=== PATIENT | female | born 1930 | race Caucasian/White ===

== ENCOUNTER 2017-10-24 18:39 | Inpatient (IN) | payer MEDICARE, OTHER ==
[~2017-10-24] VITALS: Ht 162.6 cm; Wt 51.9 kg
[2017-10-24 18:40] VITALS: BP 221/102; PULSE 101; RESP 18; TEMP 98; O2SAT 98
--- NOTE | 2017-10-24 18:50 | PD ---
HPI Chief Complaint: close head injury Time Seen by Provider: 18:41 Travel History International Travel<30 days: No Contact w/Intl Traveler<30days: No History of Present Illness HPI This is an 87-year-old female who presents to the emergency department having been found in her driveway prone unresponsive. She had been walking the dog. She thinks she remembers falling and she says the dog pulls her a fair amount. She does report mild head pain on the right side, constant, with no associated numbness or weakness. She denies any other injuries or pain. She denies any chest pain or trouble breathing. FORMERLY [facility] Past Medical History Narrative Medical Unsure of medical history Social History Tobacco Use: No Allergies-Medications (Allergen,Severity, Reaction): Coded Allergies: No Known Allergies (Unverified , 10/24/17) Review of Systems Except as stated in HPI: all other systems reviewed are Neg Physical Exam Narrative GENERAL:Well appearing, no acute distress SKIN: 1 cm stellate laceration on the right forehead. 1 cm skin tear along the base of the ulnar palmar surface of the right hand HEAD: Atraumatic. Normocephalic. EYES: Pupils equal and round. No injection or drainage. ENT: Moist mucous membranes NECK: Trachea midline. Cervical collar in place. CARDIOVASCULAR: Regular rate and rhythm. No murmur appreciated. RESPIRATORY: Clear to auscultation. Breath sounds equal bilaterally. GASTROINTESTINAL: Abdomen soft, non-tender, nondistended. MUSCULOSKELETAL: Full painless range of motion of the hips and knees bilaterally , painless exam of the right hand. NEUROLOGICAL: Awake and alert. No obvious cranial nerve deficits. Moving all extremities. PSYCHIATRIC: Appropriate mood and affect; insight and judgment normal. Data Data Orders Orders Ct Brain W/O Iv Contrast(Rout) (10/24/17 ) Ct Cerv Spine W/O Contrast (10/24/17 ) Complete Blood Count With Diff (10/24/17 18:41) Basic Metabolic Panel (Bmp) (10/24/17 18:41) ^ Insert Iv (10/24/17 18:41) Electrocardiogram (10/24/17 ) MDM Medical Decision Making Medical Screen Exam Complete: Yes Emergency Medical Condition: Yes Differential Diagnosis Subdural hematoma, epidural hematoma, traumatic subarachnoid hemorrhage, cervical spine fracture, concussion, arrhythmia, electrolyte abnormality Narrative Course This is an 87-year-old female who presents to the emergency department having sustained a closed head injury. I suspect it was from a mechanical fall from walking her dog although will check some basic labs and an EKG in the case that this may have been syncope. She is on aspirin. CT of the head and cervical spine will be obtained. Otherwise her physical exam is reassuring. She'll require laceration repair for her forehead. Patient will be signed out to oncoming provider. Courtney Silverman MD Oct 24, 2017 18:49
[2017-10-24 19:12] VITALS: BP 227/112; PULSE 105; RESP 18; O2SAT 98
[2017-10-24] MEDS ORDERED: TETANUS/DIPHTHERIA TOXOID ADULT 0.5 ML VIAL IM ONE (19:15)
--- NOTE | 2017-10-24 19:51 | RADRPT ---
EXAM DATE/TIME: 10/24/2017 18:48 This report includes an Addendum and supersedes previous reports for this exam. [facility] COMPARISON: No previous studies available for comparison. INDICATIONS : Trauma; fall. Laceration to right forehead. RADIATION DOSE: 56.35 CTDIvol (mGy) MEDICAL HISTORY : Non-responsive. SURGICAL HISTORY : Non-responsive. ENCOUNTER: Initial ACUITY: 1 day PAIN SCALE: Non-responsive LOCATION: cranial TECHNIQUE: Multiple contiguous axial images were obtained of the head. Using automated exposure control and adj ustment of the mA and/or kV according to patient size, radiation dose was kept as low as reasonably a chievable to obtain optimal diagnostic quality images. DICOM format image data is available electro nically for review and comparison. FINDINGS: CEREBRUM: There is focal hemorrhage seen in the superior-medial right frontal lobe. This are of hemorrhage elfego ures approximately 1.7 cm. The ventricles are normal for age. No evidence of midline shift, mass les ion, or acute infarction. No extra-axial fluid collections are seen. POSTERIOR FOSSA: The cerebellum and brainstem are intact. The 4th ventricle is midline. The cerebellopontine angle i s unremarkable. EXTRACRANIAL: The visualized portion of the orbits is intact. There is very prominent right frontotemporal scalp sw elling/hemorrhage. SKULL: The calvaria is intact. No evidence of skull fracture. CONCLUSION: 1. Focal hemorrhage in the superior-medial right frontal lobe measuring approximately 1.7 cm without significant underlying mass effect. 2. Prominent soft tissue swelling/hemorrhage in the right lateral frontotemporal scalp. Bo Cardoza MD on October 24, 2017 at 19:46 Board Certified Radiologist. This report was verified electronically. ADDENDUM: A focal 1.7 cm hyperdense mass in the superior-medial right frontal lobe could represent an acute hem orrhage or a pre-existing meningioma. The distinction cannot be made on this noncontrast CT. There ar e small punctate areas of hemorrhage seen in the right frontal lobe inferior to this which raises the possibility this may be an acute hemorrhage. No underlying mass effect is seen at this time. Bo Cardoza MD on October 24, 2017 at 20:59 Board Certified Radiologist. This report was verified electronically.
--- NOTE | 2017-10-24 20:06 | PD ---
Data Data Last Documented VS Vital Signs Date Time Temp Pulse Resp B/P (MAP) Pulse Ox O2 Delivery O2 Flow Rate FiO2 10/24/17 20:50 86 18 197/87 (123) 100 Room Air 10/24/17 18:[address] Brain W/O Iv Contrast(Rout) (10/24/17 ) Ct Cerv Spine W/O Contrast (10/24/17 ) Complete Blood Count With Diff (10/24/17 18:41) Basic Metabolic Panel (Bmp) (10/24/17 18:41) ^ Insert Iv (10/24/17 18:41) Electrocardiogram (10/24/17 ) Tetanus/Diphtheria Tox Adult (Tetanus/Di (10/24/17 19:15) Cefazolin Inj (Ancef Inj) (10/24/17 20:00) Wound Care (10/24/17 19:50) Consult Neurosurgery (10/24/17 ) Platelet Pheresis (10/24/17 20:51) Blood Product Administration .UPON TRANSFUSION (10/24/17 20:51) Sodium Chlor 0.9% 250 Ml Inj (Ns 250 Ml (10/24/17 21:00) Type And Screen (10/24/17 20:51) Urinalysis - C+S If Indicated (10/24/17 20:53) Admit To Inpatient (10/24/17 ) Vital Signs (Adult) TIMOTHY.Q1H (10/24/17 20:53) Elevate Head Of Bed (10/24/17 20:53) Activity Oob With Assistance (10/24/17 20:53) Neuro Checks . ORDERED (10/24/17 20:53) Sodium Chlor 0.9% 1000 Ml Inj (Ns 1000 M (10/24/17 20:53) Sodium Chloride 0.9% Flush (Ns Flush) (10/24/17 21:00) Sodium Chloride 0.9% Flush (Ns Flush) (10/24/17 21:00) Acetaminophen (Tylenol) (10/24/17 21:00) Famotidine (Pepcid) (10/24/17 21:00) Ondansetron Inj (Zofran Inj) (10/24/17 21:00) Albuterol Neb (Albuterol Neb) (10/24/17 21:00) Complete Blood Count With Diff (10/25/17 04:00) Basic Metabolic Panel (Bmp) (10/25/17 04:00) Electrocardiogram (10/24/17 ) Multiple Effect Evaporator Operator / Telemetry TIMOTHY.Q8H (10/24/17 20:53) Scd Bilateral/Knee High TIMOTHY.BID (10/24/17 20:53) Pharmacologic Contraindication (10/24/17 20:53) ^ Initiate Protocol (10/24/17 20:53) Instruction (10/24/17 20:53) [facility] Nursing Information (10/24/17 21:00) Chlorhexidine 2% Cloth (Chlorhexidine 2% (10/25/17 04:00) Chlorhexidine 2% Cloth (Chlorhexidine 2% (10/24/17 21:00) Mrsa Pcr Surveillance (10/24/17 20:53) Docusate Sodium-Senna (Patria-Colace) (10/24/17 21:00) Magnesium Hydroxide Liq (Milk Of Magnesi (10/24/17 21:00) Sennosides (Senokot) (10/24/17 21:00) Bisacodyl Supp (Dulcolax Supp) (10/24/17 21:00) Lactulose Liq (Lactulose Liq) (10/24/17 21:00) Inpatient Certification (10/24/17 ) Admit Order (Ed Use Only) (10/24/17 ) Multiple Effect Evaporator Operator / Telemetry TIMOTHY.Q8H (10/24/17 20:57) Vital Signs (Adult) Q4H (10/24/17 20:57) Diet Npo (10/25/17 Breakfast) Nursing Bedside Swallow Assess .ONCE (10/24/17 20:58) Labs Laboratory Tests Test 10/24/17 19:00 White Blood Count 9.9 TH/MM3 Red Blood Count 4.73 MIL/MM3 Hemoglobin 13.6 GM/DL Hematocrit 41.5 % Mean Corpuscular Volume 87.6 FL Mean Corpuscular Hemoglobin 28.8 PG Mean Corpuscular Hemoglobin Concent 32.8 % Red Cell Distribution Width 14.7 % Platelet Count 273 TH/MM3 Mean Platelet Volume 8.6 FL Neutrophils (%) (Auto) 68.3 % Lymphocytes (%) (Auto) 19.6 % Monocytes (%) (Auto) 9.6 % Eosinophils (%) (Auto) 2.2 % Basophils (%) (Auto) 0.3 % Neutrophils # (Auto) 6.7 TH/MM3 Lymphocytes # (Auto) 1.9 TH/MM3 Monocytes # (Auto) 0.9 TH/MM3 Eosinophils # (Auto) 0.2 TH/MM3 Basophils # (Auto) 0.0 TH/MM3 CBC Comment DIFF FINAL Differential Comment Blood Urea Nitrogen 22 MG/DL Creatinine 0.80 MG/DL Random Glucose 93 MG/DL Calcium Level 9.2 MG/DL Sodium Level 137 MEQ/L Potassium Level 4.3 MEQ/L Chloride Level 107 MEQ/L Carbon Dioxide Level 21.6 MEQ/L Anion Gap 8 MEQ/L Estimat Glomerular Filtration Rate 68 ML/MIN MDM Medical Record Reviewed: Yes Supervised Visit with HUNTER: No Narrative Course Please refer to the outgoing provider note. The patient has an injured parenchymal hemorrhage in the medial aspect of the superior portion of the right frontal lobe. The area of hemorrhage is 2 cm in maximum diameter. The patient takes aspirin. Last [address] 10/24/17 0000 Signed Impressions: Service Date/Time: Tuesday, October 24, 2017 18:48 - CONCLUSION: 1. Focal hemorrhage in the superior-medial right frontal lobe measuring approximately 1.7 cm without significant underlying mass effect. 2. Prominent soft tissue swelling/hemorrhage in the right lateral frontotemporal scalp. Bo Cardoza MD d/w Dr Singer of neurosurgery at 845pm pt to go to [facility] she has no focal CN deficit gcs is 15 R forehead laceration repaired by me at bedside with good hemostatic control d/w Dr Olsen for CC service Procedures Procedure Narrative LACERATION LOCATION: Right forehead LENGTH: 2 cm NUMBER OF STITCHES/LAURA: 4 REPAIR: The area of the laceration was prepped with Betadine and sterilely draped. The laceration was infiltrated with lidocaine with epinephrine. The wound was copiously irrigated and explored without evidence of foreign body, tendon injury or neurovascular injury. The wound was closed using 5-0 Ethilon and 4-0 Ethilon. This was a single layer repair. A sterile dressing was applied. The patient was advised to keep the dressing clean and dry. Patient tolerated the procedure well. Figure of 8 sutures were required to obtain hemostatic control. Diagnosis Primary Impression: Fall Qualified Codes: W19.XXXA - Unspecified fall, initial encounter Additional Impressions: ICH (intracerebral hemorrhage) Qualified Codes: S06.341A - Traumatic hemorrhage of right cerebrum with loss of consciousness of 30 minutes or less, initial encounter Syncope and collapse Laceration of scalp Qualified Codes: S01.01XA - Laceration without foreign body of scalp, initial encounter Admitting Information Admitting Physician Requests: Admit Scripts Unable to Obtain Active Prescriptions or Reported Meds Marcellus Tran MD Oct 24, 2017 20:06
[2017-10-24 20:12] LABS: AUTOMATED NEUTROPHIL # 6.7 TH/MM3 (1.8-7.7); BASOPHIL % 0.3 % (0.0-2.0); EOSINOPHIL # 0.2 TH/MM3 (0-0.4); EOSINOPHIL % 2.2 % (0.0-4.0); HEMATOCRIT 41.5 % (35.0-46.0); HEMO FLAGS DIFF FINAL; LYMPH % 19.6 % (9.0-44.0); LYMPHOCYTE # 1.9 TH/MM3 (1.0-4.8); MEAN CELL VOLUME 87.6 FL (80.0-100.0); MEAN CORPUSCULAR HEMOGLOBIN 28.8 PG (27.0-34.0); MEAN CORPUSCULAR HGB CONC 32.8 % (32.0-36.0); MONO % 9.6 % (0.0-8.0); NEUT % 68.3 % (16.0-70.0); PLATELET COUNT 273 TH/MM3 (150-450); RED BLOOD COUNT 4.73 MIL/MM3 (4.00-5.30); RED CELL DISTRIBUTION WIDTH 14.7 % (11.6-17.2); WHITE BLOOD COUNT 9.9 TH/MM3 (4.0-11.0)
[2017-10-24 20:32] LABS: BICARBONATE 21.6 MEQ/L (21.0-32.0); POTASSIUM 4.3 MEQ/L (3.5-5.1)
[2017-10-24 20:50] VITALS: BP 197/87; PULSE 86; RESP 18; O2SAT 100
[2017-10-24] MEDS ORDERED: MISCELLANEOUS NURSING INFORMATION XX SCH (21:00)
[2017-10-24] MEDS: FAMOTIDINE 20 MG TAB PO SCH (21:00)
[2017-10-24] MEDS ORDERED: SENNOSIDES 8.6 MG TAB PO PRN (21:00)
[2017-10-24] MEDS ORDERED: MAGNESIUM HYDROXIDE SUSP 30 ML CUP PO PRN (21:00)
[2017-10-24] MEDS ORDERED: ACETAMINOPHEN 325 MG TAB PO PRN (21:00)
[2017-10-24] MEDS ORDERED: LACTULOSE SYRUP 20 GM/30 ML CUP PO PRN (21:00)
[2017-10-24] MEDS ORDERED: SODIUM CHLORIDE 0.9% FLUSH 10 ML FLUSH IV FLUSH PRN (21:00)
[2017-10-24] MEDS ORDERED: BISACODYL 10 MG SUPP RECTAL PRN (21:00)
[2017-10-24] MEDS ORDERED: ONDANSETRON HCL 4 MG/2 ML VIAL IV PUSH PRN (21:00)
[2017-10-24] MEDS ORDERED: SODIUM CHLOR 0.9% 250 ML INJ 250 ML IV ONE (21:00)
[2017-10-24] MEDS: SODIUM CHLORIDE 0.9% FLUSH 10 ML FLUSH IV FLUSH SCH (21:00)
[2017-10-24] MEDS ORDERED: CHLORHEXIDINE GLUCONATE 2 % 1 PACK (2 CLOTHS) TOP PRN (21:00)
[2017-10-24] MEDS ORDERED: RESP: ALBUTEROL 2.5 MG/3 ML NEB (PRN) INH (21:00)
[2017-10-24] MEDS: DOCUSATE SODIUM 50 MG/SENNA 8.6 MG TAB PO SCH (21:00)
--- NOTE | 2017-10-24 21:13 | HHI.HP ---
HPI Service Critical Care Medicine Primary Care Physician Unknown Admission Diagnosis Fall; Syncope; ICH; Forehead Laceration Diagnosis: (1) Forehead laceration Diagnosis: Secondary (2) Fall (3) HTN (hypertension) Diagnosis: Secondary (4) Abrasion hand Diagnosis: Secondary (5) Concussion Diagnosis: Principal (6) Frontal lobe contusion Diagnosis: Principal Travel History International Travel<30 Days: No Contact w/Intl Traveler <30 Da: No Traveled to Known Affected Are: No History of Present Illness Patient is alert and able to provide history regarding her fall. She is not able to relate any information about her home medications or past medical history aside from her prior surgeries. 87-year-old female who was brought to [facility] emergency department after a fall with loss of consciousness. She states that she recalls walking her dog and that the dog pulled on the leash and caused her to fall. She states this is happened one time before about a year ago. She had loss of consciousness. No reported seizure activity. There is a laceration on her right forehead which has been repaired in the ED. CT brain demonstrates R frontal lobe hemorrhage. Neurosurgery has been consulted and Dr. Singer suspects underlying meningioma. She currently denies headache, nausea, neck pain, paresthesias. She is bothered by the cervical collar in place. She denies chest pain, shortness of breath, palpitations. She was hypertensive on arrival with blood pressure 227/112. She has not received any antihypertensives. Blood pressure is now 180/81. She states she does not have a history of hypertension but she is on several medications and doesn't know their names or what they're for. She states she takes a baby ASA but denies anticoagulants. Past Family Social History Allergies: Coded Allergies: No Known Allergies (Unverified , 10/24/17) Past Medical History Patient states that she has no past medical problems but also states that she is on multiple medications and she is not certain what they're for. She states she has been pulled down by her dog before and fell resulting in an ED visit to [facility]. She had a laceration that was repaired but states "I didn't have a concussion". Past Surgical History Left knee arthroplasty 7 years ago Right knee arthroplasty in May 2017 Reported Medications Patient states she takes multiple medications but does not know their names. Her family states he will they will bring in her medication list in the morning Takes aspirin 81 mg by mouth daily Family History Mother had a prior history of coronary artery disease and 5 vessel CABG. She at age 94 Father at age 45 of myocardial infarction Social History Lifetime nonsmoker Denies alcohol or illicit drug use She is a retired middle school and highway worker and lives at home with her and her clayton viera. Physical Exam Vital Signs Vital Signs Date Time Temp Pulse Resp B/P (MAP) Pulse Ox O2 Delivery O2 Flow Rate FiO2 10/24/17 20:50 86 18 197/87 (123) 100 Room Air 10/24/17 19:12 105 18 227/112 (150) 98 Room Air 10/24/17 18:45 101 18 100 Room Air 10/24/17 18:40 98.0 101 18 221/102 (141) 98 Physical Exam GENERAL: Pleasant, smiling, interactive elderly female who is laying in ED stretcher. SKIN: Warm and dry. HEAD: There is a curvilinear laceration overlying right forehead with sutures intact. There is an underlying forehead hematoma. EYES: Pupils equal and round, 2mm and reactive. No scleral icterus. + subconjunctival hemorrhage of lateral bulbar conjunctiva of right eye ENT: No nasal bleeding or discharge. Mucous membranes pink and moist. NECK: Cervical collar in place. No midline tenderness/stepoffs or deformities. CARDIOVASCULAR: Regular rate and rhythm, sinus on monitor. No murmurs rubs or gallops. RESPIRATORY: No accessory muscle use. Clear to auscultation. Breath sounds equal bilaterally. On RA. GASTROINTESTINAL: Abdomen soft, non-tender, nondistended. Bowel sounds present. MUSCULOSKELETAL: Extremities without clubbing, cyanosis, or edema. There is an deep abrasion overlying distal 5th metacarpal R hand. There is no other bony tenderness. She has some limitation of flexion of 4th and 5th fingers on her right hand which she states has been chronic since an injury about 1 year ago. NEUROLOGICAL: Awake and alert. Oriented to hospital, month. Answered year correctly after taking a long time to answer. No obvious cranial nerve deficits. Normal tongue protrusion. Normal speech. No pronator drift. Strength is normal and symmetrical throughout. Sensation is intact. No response to Babinski Laboratory Laboratory Tests Test 10/24/17 19:00 White Blood Count 9.9 Red Blood Count 4.73 Hemoglobin 13.6 Hematocrit 41.5 Mean Corpuscular Volume 87.6 Mean Corpuscular Hemoglobin 28.8 Mean Corpuscular Hemoglobin Concent 32.8 Red Cell Distribution Width 14.7 Platelet Count 273 Mean Platelet Volume 8.6 Neutrophils (%) (Auto) 68.3 Lymphocytes (%) (Auto) 19.6 Monocytes (%) (Auto) 9.6 Eosinophils (%) (Auto) 2.2 Basophils (%) (Auto) 0.3 Neutrophils # (Auto) 6.7 Lymphocytes # (Auto) 1.9 Monocytes # (Auto) 0.9 Eosinophils # (Auto) 0.2 Basophils # (Auto) 0.0 CBC Comment DIFF FINAL Differential Comment Blood Urea Nitrogen 22 Creatinine 0.80 Random Glucose 93 Calcium Level 9.2 Sodium Level 137 Potassium Level 4.3 Chloride Level 107 Carbon Dioxide Level 21.6 Anion Gap 8 Estimat Glomerular Filtration Rate 68 Result Diagram: 10/24/17189910/24/171899 Caprini VTE Risk Assessment Caprini Risk Assessment Model Point Value = 1 Point Value = 2 Point Value = 3 Point Value = 5 Age 41-60 Minor surgery BMI > 25 kg/m2 Swollen legs Varicose veins or History of unexplained or recurrent spontaneous Oral contraceptives or hormone replacement Sepsis (< 1 month) Serious lung disease, including pneumonia (< 1 month) Abnormal pulmonary function Acute myocardial infarction Congestive heart failure (< 1 month) History of inflammatory bowel disease Medical patient at bed rest Age 61-74 Arthroscopic surgery Major open surgery (> 45 min) Laparoscopic surgery (> 45 min) Malignancy Confined to bed (> 72 hours) Immobilizing plaster cast Central venous access Age >= 75 History of VTE Family history of VTE Factor V Leiden Prothrombin [id number] Lupus anticoagulant Anticardiolipin antibodies Elevated serum homocysteine Heparin-induced thrombocytopenia Other congenital or acquired thrombophilia Stroke (< 1 month) Elective arthroplasty Hip, pelvis, or leg fracture Acute spinal cord injury (< 1 month) Prophylaxis Regimen Total Risk Factor Score Risk Level Prophylaxis Regimen 0-1 Low Early ambulation 2 Moderate Order ONE of the following: *Sequential Compression Device (SCD) *Heparin 5000 units SQ BID 3-4 Higher Order ONE of the following medications: *Heparin 5000 units SQ TID *Enoxaparin/Lovenox 40 mg SQ daily (WT < 150 kg, CrCl > 30 mL/min) *Enoxaparin/Lovenox 30 mg SQ daily (WT < 150 kg, CrCl > 10-29 mL/min) *Enoxaparin/Lovenox 30 mg SQ BID (WT < 150 kg, CrCl > 30 mL/min) AND/OR *Sequential Compression Device (SCD) 5 or more Highest Order ONE of the following medications: *Heparin 5000 units SQ TID (Preferred with Epidurals) *Enoxaparin/Lovenox 40 mg SQ daily (WT < 150 kg, CrCl > 30 mL/min) *Enoxaparin/Lovenox 30 mg SQ daily (WT < 150 kg, CrCl > 10-29 mL/min) *Enoxaparin/Lovenox 30 mg SQ BID (WT < 150 kg, CrCl > 30 mL/min) AND *Sequential Compression Device (SCD) Assessment and Plan Problem List: (1) Fall ICD Code: W19.XXXA - Unspecified fall, initial encounter Status: Acute (2) Forehead laceration ICD Code: S01.81XA - Laceration without foreign body of other part of head, initial encounter Status: Acute (3) Concussion ICD Code: S06.0X9A - Concussion with loss of consciousness of unspecified duration, initial encounter Status: Acute (4) Abrasion hand ICD Code: S60.519A - Abrasion of unspecified hand, initial encounter Status: Acute (5) HTN (hypertension) ICD Code: I10 - Essential (primary) hypertension Status: Acute Assessment and Plan NEURO: Fall with Loss of consciousness Concussion R frontal hemorrhagic contusion ?meningioma. Forehead laceration Status post suture repair in the emergency department 10/24. Remove sutures in 3-5 days Admitted to [facility] for neuro checks Follow up CT brain in a.m. per neurosurgery recommendations. Obtain MRI to evaluate for meningioma per neurosurgery recommendations. Neurosurgery following, Dr. Singer. Blood pressure management as per below Follow-up coags CT Cspine - degenerative changes, no fracture. D/c cervical collar. Discussed with NSG. RESP: On room air. CV: Hypertension Labetalol/hydralazine as needed for systolic blood pressure greater than 160. Patient denies prior history of hypertension however he wasn't clear whether medical history so will need to review medications when lists arives in the morning. If she is not on home antihypertensive medication she may need to initiate something. GI: Bedside swallow eval. Heart healthy diet FEN/RENAL: Voiding. Monitor intake and output. Monitor electrolytes and replace as indicated per ICU electrolyte replacement protocol. 0.9 NaCl at 50 mL per hour overnight ID: UA negative for evidence of infection. Monitor for signs and symptoms of infection. HEME: No acute hematologic issues. She has been on aspirin. She denied being on anticoagulants. She can't remember her medications. We'll check coags. Hold on platelet transfusion per discussion with Dr. Singer ENDO: Euglycemic MSK: Abrasion right hand, distal aspect 5th metacarpal F/u xray hand. PROPH: Famotidine 20 g by mouth twice a day for stress ulcer prophylaxis. SCDs for DVT prophylaxis ACCESS: Peripheral IV providing adequate access at this time CODE STATUS discussed and patient states she desires to be full code. Her was at bedside during conversation. Level 3 H and P Problem Qualifiers (1) Forehead laceration: Qualified Codes: S01.81XA - Laceration without foreign body of other part of head, initial encounter (2) Fall: Qualified Codes: W19.XXXA - Unspecified fall, initial encounter (3) Concussion: (4) Frontal lobe contusion: Qualified Codes: S06.311A - Contusion and laceration of right cerebrum with loss of consciousness of 30 minutes or less, initial encounter Sarah Olsen MD Oct 24, 2017 21:13
--- NOTE | 2017-10-24 21:46 | HHI.NSPN ---
History Chief Complaint: Fall Interval History 87y/o female patient was walking her dog and fell with LOC. Brought to [facility] ER. Ct of brain performed which was abnormal. Neurosurgery consult placed. patient reports doing well at present System Review Comments Denies any problems except arthritis Exam Results Vital Signs Date Time Temp Pulse Resp B/P (MAP) Pulse Ox O2 Delivery O2 Flow Rate FiO2 10/24/17 20:50 86 18 197/87 (123) 100 Room Air 10/24/17 18:40 98.0 Intake and Output 10/24/17 10/24/17 10/25/17 08:00 16:00 00:00 Intake Total 100 ml Balance 100 ml Physical Examination Multiple abrasions about the face and scalp hematoma over right frontal area with small laceration Alert and awake Fluent speech Oriented x2 Confused about year CN II-XII intact Motor 5/5 Sensory intact to touch DTRs UEs1+ KJ 1+ AJ Tr Lab, Micro, Other Results CT of brain shows evidence of small bleeding in right frontal lobe. Possible small meningioma present CT of Cspine deg changes Medical Decision Making Impression and Plan Imp: Small SAH frontal lobe Possible meningioma P: Admit for observation Repeat CT in am Total Minutes: 30 Mata Singer MD Oct 24, 2017 21:46
--- NOTE | 2017-10-24 22:03 | RADRPT ---
EXAM DATE/TIME: 10/24/2017 18:51 [facility] COMPARISON: No previous studies available for comparison. INDICATIONS : Trauma; fall. RADIATION DOSE: 33.42 CTDIvol (mGy) MEDICAL HISTORY : Non-responsive. SURGICAL HISTORY : Non-responsive. ENCOUNTER: Initial ACUITY: 1 day PAIN SCALE: Non-responsive LOCATION: Neck TECHNIQUE: Volumetric scanning of the cervical spine was performed. Multiplanar reconstructions in the sagittal, coronal and oblique axial planes were performed. Using automated exposure control and adjustment o f the mA and/or kV according to patient size, radiation dose was kept as low as reasonably achievable to obtain optimal diagnostic quality images. DICOM format image data is available electronically f or review and comparison. FINDINGS: VERTEBRAE: Normal vertebral body height. ALIGNMENT: There is mild anterior subluxation of C4 on C5 and C7 on T1 likely secondary to facet hypertrophy. C2-C3: Disc space is intact. There is no spinal stenosis. Neural foraminal is normal. There is prominent f acet hypertrophy seen on the left side. C3-C4: The disc space is intact. There is no spinal stenosis. Neural foraminal is normal. There is very pr ominent right facet hypertrophy. C4-C5: Again noted is some mild anterior subluxation of C4 on C5. A significant impression on the thecal sa c is not seen. The neural foraminal are normal. There is prominent facet hypertrophy being worse on the left. C5-C6: Disc space is narrowed. A significant impression on the thecal sac is not seen. There is mild facet and uncovertebral hypertrophy. The neural foraminal appear normal. C6-C7: Disc space is narrowed. A significant impression on the thecal sac is not seen. There is mild facet and uncovertebral hypertrophy. The neural foraminal are grossly patent. C7-T1: There is minimal anterior subluxation of C7 on T1. This is likely secondary to facet hypertrophy. S ignificant stenosis is not seen. The neural foraminal are normal. CONCLUSION: 1. No acute bony abnormality is seen. 2. Chronic degenerative change as described above. Bo Cardoza MD on October 24, 2017 at 19:50 Board Certified Radiologist. This report was verified electronically.
[2017-10-24] MEDS: LABETALOL HCL 100 MG/20 ML VIAL IV PUSH PRN ×2 (22:08→22:36)
[2017-10-24] MEDS: SODIUM CHLOR 0.9% 1000 ML INJ 1,000 ML IV SCH (22:09)
[2017-10-24 22:17] VITALS: BP 140/65; PULSE 71; RESP 18; TEMP 98.1; O2SAT 96
[2017-10-24 22:30] VITALS: BP 180/81; PULSE 74; RESP 15; TEMP 98.3; O2SAT 99
[2017-10-24 22:39] LABS: BLOOD, URINE TRACE (NEG); GLUCOSE,URINE NEG (NEG); KETONE, URINE 10 mg/dL (NEG); MUCUS URINE FEW /lpf (OCC); NITRITE,URINE NEG (NEG); SQUAMOUS EPITHELIAL CELL URINE 1 /hpf (0-5); URINE COLOR LIGHT-YELLOW (YELLW/STRAW)
[2017-10-24 22:42] LABS: COMMENT (UR) CULT NOT INDICATED; CULTURE IF INDICATED CULT NOT INDICATED
[2017-10-24 23:00] VITALS: BP 156/92; PULSE 74; RESP 18; TEMP 97.9; O2SAT 98
[2017-10-25] VITALS (12 sets, daily range): BP systolic 115–160; BP diastolic 52–87; PULSE 79–109; RESP 18–26; TEMP 97.9–99.5; O2SAT 96–99
[2017-10-25] MEDS ORDERED: hydrALAZINE HCL 20 MG/ML VIAL IV PUSH PRN (00:30)
[2017-10-25 00:44] LABS: APTT (PATIENT) 25.5 SEC (24.3-30.1); PROTHROMBIN TIME - PATIENT 10.4 SEC (9.8-11.6)
[2017-10-25] MEDS: CHLORHEXIDINE GLUCONATE 2 % 1 PACK (2 CLOTHS) TOP SCH ×2 (04:00→22:28)
[2017-10-25 05:30] LABS: AUTOMATED NEUTROPHIL # 8.6 TH/MM3 (1.8-7.7); BASOPHIL % 0.4 % (0.0-2.0); EOSINOPHIL % 0.3 % (0.0-4.0); HEMATOCRIT 34.4 % (35.0-46.0); HEMO FLAGS DIFF FINAL; LYMPH % 9.4 % (9.0-44.0); MEAN CELL VOLUME 85.8 FL (80.0-100.0); MEAN CORPUSCULAR HGB CONC 33.8 % (32.0-36.0); MONO % 9.8 % (0.0-8.0); NEUT % 80.1 % (16.0-70.0); PLATELET COUNT 164 TH/MM3 (150-450); RED BLOOD COUNT 4.01 MIL/MM3 (4.00-5.30); RED CELL DISTRIBUTION WIDTH 14.2 % (11.6-17.2); WHITE BLOOD COUNT 10.8 TH/MM3 (4.0-11.0)
--- NOTE | 2017-10-25 05:39 | MB ---
cc: REGGIE HENSLEY DATE OF CONSULTATION 10/24/2017 CHIEF COMPLAINT Fall. HISTORY This is an 87-year-old female patient who was walking her dog when she apparently sustained a fall with loss of consciousness. She was brought to [facility] where she underwent evaluation with CT scan which was abnormal and neurosurgery consult was placed. Presently the patient has no significant complaints. She denies any type of injuries about her body. PAST MEDICAL HISTORY The patient is unsure of her medical history. ALLERGIES She has no apparent allergies. MEDICATIONS Not familiar to her, although she does say that she takes aspirin. REVIEW OF SYSTEMS Unremarkable. She denies any other system problems. PHYSICAL EXAMINATION GENERAL: A well-developed female in mild distress. HEENT: She has multiple ecchymosis about the face and a small laceration of the scalp and the right frontal area with an area of hematoma. The rest of the HEENT is unremarkable. NECK: She is in a cervical collar. CHEST: Symmetric. LUNGS: Clear. ABDOMEN: Soft, nontender. EXTREMITIES: Clear. NEUROLOGIC: She is alert and awake. She follows commands well. She is oriented x 2. She is confused as to the year. Her speech is fluent. Cranial nerves II through XII are intact. Motor exam is 5+/5. Sensory exam is intact to touch. Deep tendon reflex are 1+ in the upper extremities, 1+ at the knee jerks and trace at the ankle jerks. IMAGING STUDIES Review of a CT scan of the brain showed what appears to be a small amount of bleeding in the right frontal area in the subarachnoid space. There is also a questionable lesion which may be compatible with a small meningioma, although not entirely clear. CT of the cervical spine shows degenerative changes. OVERALL IMPRESSION A small traumatic subarachnoid hemorrhage with a questionable small meningioma. PLAN 1. Admit the patient for observation. 2. Repeat CT in the morning. 3. Place her in the Intensive Care Unit. MD JOVI Flores/CADEN /9:47 PM /5:25 AM [facility] CENTERConnie
[2017-10-25 05:49] LABS: BICARBONATE 19.6 MEQ/L (21.0-32.0); POTASSIUM 4.3 MEQ/L (3.5-5.1)
--- NOTE | 2017-10-25 07:04 | RADRPT ---
EXAM DATE/TIME: 10/25/2017 06:33 [facility] COMPARISON: CT BRAIN W/O CONTRAST, October 24, 2017, 18:48. INDICATIONS : Follow up hemorrhage. RADIATION DOSE: 37.75 CTDIvol (mGy) MEDICAL HISTORY : Non-responsive. SURGICAL HISTORY : Non-responsive. ENCOUNTER: Subsequent ACUITY: 1 day PAIN SCALE: Non-responsive LOCATION: cranial TECHNIQUE: Multiple contiguous axial images were obtained of the head. Using automated exposure control and adj ustment of the mA and/or kV according to patient size, radiation dose was kept as low as reasonably a chievable to obtain optimal diagnostic quality images. DICOM format image data is available electro nically for review and comparison. FINDINGS: CEREBRUM: There are new areas of parenchymal hemorrhage seen in the left temporal lobe measuring up to 1.1 cm. There is some surrounding low density in this region. There also appears to be minimal left subdural hemorrhage over the left temporal lobe measuring 2 mm in thickness. There also appears to be increase d density at the left tentorium likely related to a tentorial subdural hemorrhage. There is subdural hemorrhage seen along the posterior left side of the falx. Again noted is the increased density seen over the anterior right frontal lobe likely reflecting hemorrhage. The ventricles are normal for age. No evidence of midline shift or acute infarction. POSTERIOR FOSSA: The cerebellum and brainstem are intact. The 4th ventricle is midline. The cerebellopontine angle i s unremarkable. EXTRACRANIAL: The visualized portion of the orbits is intact. There is right frontotemporal scalp swelling. SKULL: The calvaria is intact. No evidence of skull fracture. CONCLUSION: 1. Persistent focal area of increased density at the anterior right frontal lobe which may represent an area of hemorrhage or possible pre-existing meningioma of the right anterior frontal lobe. 2. New small areas of parenchymal hemorrhage with surrounding edema at the left temporal lobe. 3. Minimal left temporal subdural hemorrhage area there also appears to be subdural hemorrhage at the posterior left side of falx and at the left tentorium. This information was relayed to Graciela, the patient's nurse by telephone. Bo Cardoza MD on October 25, 2017 at 6:51 Board Certified Radiologist. This report was verified electronically.
--- NOTE | 2017-10-25 07:52 | RADRPT ---
EXAM DATE/TIME: 10/25/2017 07:21 [facility] COMPARISON: No previous studies available for comparison. INDICATIONS : Right hand laceration. Patient was dragged down by her dog. MEDICAL HISTORY : None. SURGICAL HISTORY : None. ENCOUNTER: Initial ACUITY: 2 days PAIN SCORE: 2/10 LOCATION: Right hand. FINDINGS: 3 views of the right hand show ost arthritic changes involving the DIP joints of the third through fi fth fingers. Some erosions are noted. Bone mineralization is reduced throughout. No fracture or dislo cation. No radiopaque foreign body. Soft tissues are unremarkable. CONCLUSION: Erosive osteoarthritic changes. No acute abnormality. Prasad Poon Jr., MD on October 25, 2017 at 7:38 Board Certified Radiologist. This report was verified electronically.
[2017-10-25] MEDS: DOCUSATE SODIUM 50 MG/SENNA 8.6 MG TAB PO SCH ×2 (09:00→19:47)
--- NOTE | 2017-10-25 10:14 | HHI.NSPN ---
(Kendall Maldonado) History Chief Complaint: None (Kendall Maldonado) Interval History 10/24: This is an 87-year-old female patient who was walking her dog when she apparently sustained a fall with loss of consciousness. She was brought to [facility] where she underwent evaluation with CT scan which was abnormal and neurosurgery consult was placed. Presently the patient has no significant complaints. She denies any type of injuries about her body. 10/25: The patient is awake and alert when seen this morning and she had no complaints. Nursing reports that she has been up to the bathroom to void and her gait was steady. She is to go for an MRI brain today to evaluate for a possible meningioma per CT. (Kendall Maldonado) System Review Comments The ROS is negative. (Kendall Maldonado) Exam Results 10/23/17 10/23/17 10/24/17 10/24/17 10/25/17 10/25/17 06:00 18:00 06:00 18:00 06:00 18:00 Intake Total 100 ml 0 ml Output Total 350 ml Balance 100 ml -350 ml Intake Oral 0 ml IV Total 100 ml Output Urine Total 350 ml Emesis 0 ml # Bowel Movements 1 Vital Signs Date Time Temp Pulse Resp B/P (MAP) Pulse Ox O2 Delivery O2 Flow Rate FiO2 10/25/17 06:00 90 20 142/65 (90) 98 10/25/17 06:00 90 10/25/17 05:00 109 10/25/17 05:00 109 20 160/69 (99) 96 10/25/17 04:00 88 10/25/17 04:00 99.5 88 20 129/58 (81) 97 10/25/17 03:00 Room Air 10/25/17 02:00 81 10/25/17 00:00 81 10/25/17 00:00 97.9 81 18 115/87 (96) 97 10/24/17 23:00 74 10/24/17 23:00 97.9 74 18 156/92 (113) 98 10/24/17 22:35 10/24/17 22:30 74 10/24/17 22:30 98.3 74 15 180/81 (114) 99 10/24/17 22:17 98.1 71 18 140/65 (90) 96 Room Air 10/24/17 20:50 86 18 197/87 (123) 100 Room Air 10/24/17 19:12 105 18 227/112 (150) 98 Room Air 10/24/17 18:45 101 18 100 Room Air 10/24/17 18:40 98.0 101 18 221/102 (141) 98 (Kendall Maldonado) Physical Examination GENERAL: Awake & alert, readily interacts, affect normal, no apparent distress. HEENT: Normocephalic, abrasion to right forehead/frontal scalp. PERRLA 3 mm brisk, EOMI. No otorrhea or rhinorrhea. MMM & pink, tongue midline to protrusion. MUSCULOSKELETAL: BOLIVAR w/o difficulty, ecchymosis to BUE, right proximal forearm TTP, no evident deformity or clubbing. NEUROLOGICAL: AAOx3. Speech clear & appropriate. Follows commands w/o difficulty. CN VIII deficit ([place]) o/w CN II-XII appear grossly intact. Sensation intact to light touch to all extremities. Motor strength 5/5 to all major flexion & extension muscle groups. (Kendall Maldonado) Lab, Micro, Other Results This practitioner independently reviewed the CT brain images completed this morning and compared with those from . The right frontal lesion appears slightly improved but there are new left temporoparietal parenchymal haemorrhages. Recent Impressions Head CT 10/25/17 0900 Signed Impressions: Service Date/Time: Wednesday, October 25, 2017 06:33 - CONCLUSION: 1. Persistent focal area of increased density at the anterior right frontal lobe which may represent an area of hemorrhage or possible pre-existing meningioma of the right anterior frontal lobe. 2. New small areas of parenchymal hemorrhage with surrounding edema at the left temporal lobe. 3. Minimal left temporal subdural hemorrhage area there also appears to be subdural hemorrhage at the posterior left side of falx and at the left tentorium. This information was relayed to Graciela, the patient's nurse by telephone. Bo Cardoza MD Hand X-Ray 10/25/17 0000 Signed Impressions: Service Date/Time: Wednesday, October 25, 2017 07:21 - CONCLUSION: Erosive osteoarthritic changes. No acute abnormality. Prasad Poon Jr., MD Head CT 10/24/17 0000 Signed Impressions: Service Date/Time: Tuesday, October 24, 2017 18:48 - CONCLUSION: 1. Focal hemorrhage in the superior-medial right frontal lobe measuring approximately 1.7 cm without significant underlying mass effect. 2. Prominent soft tissue swelling/hemorrhage in the right lateral frontotemporal scalp. Bo Cardoza MD ADDENDUM: A focal 1.7 cm hyperdense mass in the superior-medial right frontal lobe could represent an acute hemorrhage or a pre-existing meningioma. The distinction cannot be made on this noncontrast CT. There are small punctate areas of hemorrhage seen in the right frontal lobe inferior to this which raises the possibility this may be an acute hemorrhage. No underlying mass effect is seen at this time. Bo Cardoza MD Cervical Spine CT 10/24/17 0000 Signed Impressions: Service Date/Time: Tuesday, October 24, 2017 18:51 - CONCLUSION: 1. No acute bony abnormality is seen. 2. Chronic degenerative change as described above. Bo Cardoza MD Laboratory Tests Test 10/24/17 19:00 10/24/17 21:41 10/24/17 22:30 10/25/17 00:25 White Blood Count 9.9 TH/MM3 Red Blood Count 4.73 MIL/MM3 Hemoglobin 13.6 GM/DL Hematocrit 41.5 % Mean Corpuscular Volume 87.6 FL Mean Corpuscular Hemoglobin 28.8 PG Mean Corpuscular Hemoglobin Concent 32.8 % Red Cell Distribution Width 14.7 % Platelet Count 273 TH/MM3 Mean Platelet Volume 8.6 FL Neutrophils (%) (Auto) 68.3 % Lymphocytes (%) (Auto) 19.6 % Monocytes (%) (Auto) 9.6 % Eosinophils (%) (Auto) 2.2 % Basophils (%) (Auto) 0.3 % Neutrophils # (Auto) 6.7 TH/MM3 Lymphocytes # (Auto) 1.9 TH/MM3 Monocytes # (Auto) 0.9 TH/MM3 Eosinophils # (Auto) 0.2 TH/MM3 Basophils # (Auto) 0.0 TH/MM3 CBC Comment DIFF FINAL Differential Comment Blood Urea Nitrogen 22 MG/DL Creatinine 0.80 MG/DL Random Glucose 93 MG/DL Calcium Level 9.2 MG/DL Sodium Level 137 MEQ/L Potassium Level 4.3 MEQ/L Chloride Level 107 MEQ/L Carbon Dioxide Level 21.6 MEQ/L Anion Gap 8 MEQ/L Estimat Glomerular Filtration Rate 68 ML/MIN Urine Color LIGHT-YELLOW Urine Turbidity CLEAR Urine pH 5.0 Urine Specific Maurice 1.012 Urine Protein TRACE mg/dL Urine Glucose (UA) NEG mg/dL Urine Ketones 10 mg/dL Urine Occult Blood TRACE Urine Nitrite NEG Urine Bilirubin NEG Urine Urobilinogen LESS THAN 2.0 MG/DL Urine Leukocyte Esterase TRACE Urine RBC 4 /hpf Urine WBC 4 /hpf Urine Squamous Epithelial Cells 1 /hpf Urine Mucus FEW /lpf Microscopic Urinalysis Comment CULT NOT INDICATED Nasal Screen MRSA (PCR) MRSA NOT DETECTED Prothrombin Time 10.4 SEC Prothromb Time International Ratio 1.0 RATIO Activated Partial Thromboplast Time 25.5 SEC Test 10/25/17 04:50 White Blood Count 10.8 TH/MM3 Red Blood Count 4.01 MIL/MM3 Hemoglobin 11.6 GM/DL Hematocrit 34.4 % Mean Corpuscular Volume 85.8 FL Mean Corpuscular Hemoglobin 29.0 PG Mean Corpuscular Hemoglobin Concent 33.8 % Red Cell Distribution Width 14.2 % Platelet Count 164 TH/MM3 Mean Platelet Volume 8.8 FL Neutrophils (%) (Auto) 80.1 % Lymphocytes (%) (Auto) 9.4 % Monocytes (%) (Auto) 9.8 % Eosinophils (%) (Auto) 0.3 % Basophils (%) (Auto) 0.4 % Neutrophils # (Auto) 8.6 TH/MM3 Lymphocytes # (Auto) 1.0 TH/MM3 Monocytes # (Auto) 1.1 TH/MM3 Eosinophils # (Auto) 0.0 TH/MM3 Basophils # (Auto) 0.0 TH/MM3 CBC Comment DIFF FINAL Differential Comment Hematology Comments Blood Urea Nitrogen 18 MG/DL Creatinine 0.62 MG/DL Random Glucose 98 MG/DL Calcium Level 8.4 MG/DL Sodium Level 139 MEQ/L Potassium Level 4.3 MEQ/L Chloride Level 110 MEQ/L Carbon Dioxide Level 19.6 MEQ/L Anion Gap 9 MEQ/L Estimat Glomerular Filtration Rate 91 ML/MIN (Kendall Maldonado) Medical Decision Making Impression and Plan Impression: 1.) Small traumatic subarachnoid hemorrhage with a questionable small meningioma. The patient is doing well this morning and is neurologically intact and appears at baseline. CT brain demonstrates persistent anterior right frontal lobe haemorrhage with new areas of left temporal lobe parenchymal haemorrhage, minimal left temporal SDH as well as a left side falx & tentorium SDH. Plan: Primary management per Carpet Installer/Hospitalist. Neuro checks. Stat CT for any decline in neuro status. MRI brain w/o & w/contrast to evaluate for meningioma. Clear liquids and advance as tolerated. Mechanical DVT prophylaxis. Hold pharmacologic DVT prophylaxis. Recommend that the patient remain in [facility] at least another 24 hrs due to new areas of haemorrahge. (Kendall Maldonado) Total Minutes: 30 (Kendall Maldonado) Attending Statement The exam, history, and the medical decision-making described in the above note were completed with the assistance of the mid-level provider. I reviewed and agree with the findings presented. I attest that I had a [id number] encounter with the patient on the same day, and personally performed and documented my assessment and findings in the medical record. On my examination of the patient this evening, she is noted to have mild right palpebral ecchymosis. Awake and alert Oriented X 3 Speech is clear Conversant and appropriate Follow simple commands well Answers questions appropriately Reasonable judgment and insight Recent and remote memory are intact No evidence of anxiety or depression Pupils are equal and reactive to accommodation. Extra-ocular movements, visual alexander to confrontation, facial sensorimotor, tongue, palate, sternocleidomastoid testing, hearing to finger rub testing, and bilateral shoulder shrug are all intact. Sensation is intact to light touch in all extremities Strength normal major flexion and extension groups all extremities Clayton's absent bilaterally No ankle clonus Plantar responses absent bilateral Fine motor movements intact upper extremities Imaging studies: 10/25/17 CT scan of the head reveals stable focal left temporal cortical and subcortical contusion without significant mass effect. 10/25/17 MRI brain reveals the left primarily temporal contusion with very slight surrounding enhancement. Findings were discussed with the patient. She is stable for transfer to regular floor. A follow-up MRI will be obtained an approximate 6 weeks due to the slight enhancement noted. (Angel Hernández MD) Kendall Maldonado Oct 25, 2017 10:13 Angel Hernández MD Oct 25, 2017 20:17
[2017-10-25] MEDS: SODIUM CHLORIDE 0.9% FLUSH 10 ML FLUSH IV FLUSH SCH ×2 (11:07→21:00)
[2017-10-25] MEDS: FAMOTIDINE 20 MG TAB PO SCH ×2 (11:26→22:27)
[2017-10-25] MEDS: LABETALOL HCL 100 MG/20 ML VIAL IV PUSH PRN (11:26)
[2017-10-25] MEDS ORDERED: GADODIAMIDE PF 287 MG/ML 5 ML VIAL (for RAD MRI) IV PUSH ONE (14:40)
--- NOTE | 2017-10-25 14:44 | RADRPT ---
EXAM DATE/TIME: 10/25/2017 13:58 [facility] COMPARISON: CT BRAIN W/O CONTRAST, October 25, 2017, 6:33. INDICATIONS : Trauma. Brain bleed. CONTRAST: 11 cc Omniscan (gadodiamide) IV MEDICAL HISTORY : None. SURGICAL HISTORY : Total knee replacement, right. Total knee replacement, left. ENCOUNTER: Initial ACUITY: 2 day PAIN SCORE: 3/10 LOCATION: head TECHNIQUE: Multiplanar, multisequence MRI of the brain was performed both prior to and following the administrat ion of paramagnetic contrast. FINDINGS: There is small hemorrhage in the left temporoparietal region with a small amount of extra-axial fluid present. this has minimal localized mass effect. Ventricular size is appropriate. Scattered white matter changes are seen in the periventricular white matter. Following administration of contrast there is some subtle enhancement in the left temporal regio n associated with the hemorrhage. This does not look like an AVM. This could be subtle venous angio ma. Posterior fossa is unremarkable. Orbits and paranasal sinuses CONCLUSION: Small parenchymal hemorrhage left parietal-occipital region probably bland hemorrhage . Subtle enhancement with contrast should be followed with MRI in 6 weeks to ensure this is evolving as gland hemorrhage should.. Juan Castillo MD FACR on October 25, 2017 at 14:38 Board Certified Radiologist. This report was verified electronically.
[2017-10-25] MEDS: SODIUM CHLOR 0.9% 1000 ML INJ 1,000 ML IV SCH (14:55)
--- NOTE | 2017-10-25 16:27 | HHI.CCPN ---
Subjective Remarks/Hospital Course Patient is alert and able to provide history regarding her fall. She is not able to relate any information about her home medications or past medical history aside from her prior surgeries. 87-year-old female who was brought to [facility] emergency department after a fall with loss of consciousness. She states that she recalls walking her dog and that the dog pulled on the leash and caused her to fall. She states this is happened one time before about a year ago. She had loss of consciousness. No reported seizure activity. There is a laceration on her right forehead which has been repaired in the ED. CT brain demonstrates R frontal lobe hemorrhage. Neurosurgery has been consulted and Dr. Singer suspects underlying meningioma. She currently denies headache, nausea, neck pain, paresthesias. She is bothered by the cervical collar in place. She denies chest pain, shortness of breath, palpitations. She was hypertensive on arrival with blood pressure 227/ 112. She has not received any antihypertensives. Blood pressure is now 180/ 81. She states she does not have a history of hypertension but she is on several medications and doesn't know their names or what they're for. She states she takes a baby ASA but denies anticoagulants. 10/25: Patient is alert awake now focal deficits. MRI today shows small hemorrhage in the left temporoparietal region with a small amount of extra- axial fluid present, has minimal localized mass effect. Following administration of contrast there is some subtle enhancement in the left temporal region associated with the hemorrhage. This does not look like an AVM , but could be subtle venous angioma. No meningioma on MRI. F/u MRI in 6 weeks recommended Objective Vital Signs Date Time Temp Pulse Resp B/P (MAP) Pulse Ox O2 Delivery O2 Flow Rate FiO2 10/25/17 12:00 98.0 79 22 118/57 (77) 96 10/25/17 07:00 Room Air Intake and Output 10/25/17 10/25/17 10/26/17 08:00 16:00 00:00 Intake Total 0 ml 381 ml Output Total 350 ml 625 ml Balance -350 ml -244 ml Result Diagram: 10/25/17 0450 10/25/17 0450 Objective Remarks GENERAL: Pleasant, smiling, interactive elderly female who is lying in bed. SKIN: Warm and dry. HEAD: There is a curvilinear laceration overlying right forehead with sutures intact. There is an underlying forehead hematoma. EYES: Pupils equal and round, 2mm and reactive. No scleral icterus. + subconjunctival hemorrhage conjunctiva of right eye ENT: No nasal bleeding or discharge. Mucous membranes pink and moist. NECK: No midline tenderness CARDIOVASCULAR: Regular rate and rhythm, sinus on monitor. No murmurs rubs or gallops. RESPIRATORY: No accessory muscle use. Clear to auscultation. GASTROINTESTINAL: Abdomen soft, non-tender, nondistended. Bowel sounds present. MUSCULOSKELETAL: Extremities without clubbing, cyanosis, or edema. There is an deep abrasion overlying distal 5th metacarpal R hand. NEUROLOGICAL: Awake and alert. Oriented to hospital, month, year. No obvious cranial nerve deficits. Normal speech. No pronator drift. Strength is normal and symmetrical throughout. Sensation is intact. A/P Problem List: (1) Fall ICD Code: W19.XXXA - Unspecified fall, initial encounter Status: Acute (2) Forehead laceration ICD Code: S01.81XA - Laceration without foreign body of other part of head, initial encounter Status: Acute (3) Concussion ICD Code: S06.0X9A - Concussion with loss of consciousness of unspecified duration, initial encounter Status: Acute (4) Abrasion hand ICD Code: S60.519A - Abrasion of unspecified hand, initial encounter Status: Acute (5) HTN (hypertension) ICD Code: I10 - Essential (primary) hypertension Status: Acute Assessment and Plan NEURO: Fall with Loss of consciousness Concussion R frontal hemorrhagic contusion ?meningioma. Forehead laceration Status post suture repair in the emergency department 10/24. Remove sutures in 3-[address] brain in a.m. per neurosurgery recommendations. MRI today shows small hemorrhage in the left temporoparietal region with a small amount of extra-axial fluid present, has minimal localized mass effect. Following administration of contrast there is subtle enhancement in the left temporal region associated with the hemorrhage. This does not look like an AVM , but could be subtle venous angioma. MRI rpt in 6 weeks Neurosurgery following, Dr. Singer. Now Dr. Hernández Blood pressure management as per below Follow-up coags CT C spine - degenerative changes, no fracture. RESP: On room air. CV: Hypertension Labetalol/hydralazine as needed for systolic blood pressure greater than 160. Patient denies prior history of hypertension however he wasn't clear whether medical history so will need to review medications when lists arrives in the morning. Normotensive now. GI: Bedside swallow eval. Heart healthy diet FEN/RENAL: Voiding. Monitor intake and output. Monitor electrolytes and replace as indicated per ICU electrolyte replacement protocol. 0.9 NaCl at 50 mL per hour overnight-DC today ID: UA negative for evidence of infection. Monitor for signs and symptoms of infection. HEME: No acute hematologic issues. She has been on aspirin. She denied being on anticoagulants. She can't remember her medications. We'll check coags. ENDO: Euglycemic MSK: Abrasion right hand, distal aspect 5th metacarpal F/u xray hand- no fracture PROPH: Famotidine 20 g by mouth twice a day for stress ulcer prophylaxis. SCDs for DVT prophylaxis ACCESS: Peripheral IV providing adequate access at this time CODE STATUS discussed and patient states she desires to be full code. Her was at bedside during conversation. Level 2 Transfer to Med surg/transfer to floor. Hospitalist to assume care in am Problem Qualifiers (1) Fall: Qualified Codes: W19.XXXA - Unspecified fall, initial encounter (2) Forehead laceration: Qualified Codes: S01.81XA - Laceration without foreign body of other part of head, initial encounter (3) Concussion: Glendy Soriano MD Oct 25, 2017 16:27
--- NOTE | 2017-10-25 17:05 | EKG ---
Date Performed: 10/24/2017 Time Performed: 18:49:36 PTAGE: 87 years EKG: SINUS TACHYCARDIA MODERATE ST DEPRESSION Since previous tracing, no significant change note d ABNORMAL ECG PREVIOUS TRACING : 05/19/2000 08.29 DOCTOR: Thad Priest Interpretating Date/Time 10/25/2017 17:03:19
[2017-10-26] VITALS (7 sets, daily range): BP systolic 98–180; BP diastolic 47–80; PULSE 76–93; RESP 18–19; TEMP 97.3–98.6; O2SAT 97–98
[2017-10-26] MEDS ORDERED: hydrALAZINE HCL 50 MG TAB PO ONE (06:30)
[2017-10-26] MEDS: SODIUM CHLORIDE 0.9% FLUSH 10 ML FLUSH IV FLUSH SCH ×2 (09:00→20:23)
[2017-10-26] MEDS: DOCUSATE SODIUM 50 MG/SENNA 8.6 MG TAB PO SCH ×2 (10:20→20:22)
[2017-10-26] MEDS: FAMOTIDINE 20 MG TAB PO SCH ×2 (10:20→20:22)
[2017-10-26] MEDS: ENALAPRIL MALEATE 2.5 MG TAB PO SCH (10:20)
[2017-10-26] MEDS ORDERED: cloNIDine HCL 0.1 MG TAB PO PRN (12:30)
[2017-10-26] MEDS: traMADol HCL 50 MG TAB PO PRN ×2 (13:02→20:22)
[2017-10-26] MEDS ORDERED: ESTR0.5T PO (14:46)
[2017-10-26] MEDS ORDERED: diclofenac PO (14:46)
[2017-10-26] MEDS ORDERED: ASPI1TAB93 (14:46)
[2017-10-26] MEDS ORDERED: DOXY1CAP74 PO (14:46)
[2017-10-26] MEDS ORDERED: LUTE20CA PO (14:46)
[2017-10-26] MEDS ORDERED: CITA20TA4 PO (14:46)
[2017-10-26] MEDS ORDERED: MONT10TA2 (14:46)
--- NOTE | 2017-10-26 16:09 | HHI.NSPN ---
(Kendall Maldonado) History Chief Complaint: Improving headache and nausea. (Kendall Maldonado) Interval History 10/24: This is an 87-year-old female patient who was walking her dog when she apparently sustained a fall with loss of consciousness. She was brought to [facility] where she underwent evaluation with CT scan which was abnormal and neurosurgery consult was placed. Presently the patient has no significant complaints. She denies any type of injuries about her body. 10/25: The patient is awake and alert when seen this morning and she had no complaints. Nursing reports that she has been up to the bathroom to void and her gait was steady. She is to go for an MRI brain today to evaluate for a possible meningioma per CT. 10/26: When seen this afternoon the patient is in a stretcher getting ready to go down for rib x-rays. She stated that this morning she had a headache, dizziness and nausea. When they got her back to bed it took two people to help her. The headache and dizziness are better and the nausea has resolved. She says she is having pain up under her right breast and it was felt she may have a rib fracture. She also stated that Physical Therapy thought she would be able to go home with Home Health for further therapy. (Kendall Maldonado) System Review Comments GASTROINTESTINAL: Nausea this morning. NEUROLOGICAL: Headache and dizziness from this morning that is improving. (Kendall Maldonado) Exam Results 10/24/17 10/24/17 10/25/17 10/25/17 10/26/17 10/26/17 06:00 18:00 06:00 18:00 06:00 18:00 Intake Total 100 ml 1440 ml Output Total 1200 ml Balance 100 ml 240 ml Intake Oral 360 ml IV Total 100 ml 1080 ml Output Urine Total 1200 ml Emesis 0 ml # Voids 5 2 # Bowel Movements 3 Vital Signs Date Time Temp Pulse Resp B/P (MAP) Pulse Ox O2 Delivery O2 Flow Rate FiO2 10/26/17 12:00 98.1 93 18 180/77 (111) 98 10/26/17 09:42 97 Room Air 10/26/17 08:00 97.8 92 19 138/80 (99) 97 10/26/17 05:27 98.1 77 19 163/69 (100) 97 10/25/17 22:30 97 Room Air 10/25/17 20:00 98.8 89 26 158/70 (99) 97 10/25/17 19:00 98 Room Air 10/25/17 16:00 98.4 81 24 132/62 (85) 97 10/25/17 16:00 92 10/25/17 14:00 86 10/25/17 12:00 98.0 79 22 118/57 (77) 96 10/25/17 10:00 97 10/25/17 08:00 98.3 90 19 119/52 (74) 99 10/25/17 08:00 83 10/25/17 07:00 99 Room Air 10/25/17 07:00 83 10/25/17 06:00 90 20 142/65 (90) 98 10/25/17 06:00 90 10/25/17 05:00 109 10/25/17 05:00 109 20 160/69 (99) 96 10/25/17 04:00 88 10/25/17 04:00 99.5 88 20 129/58 (81) 97 10/25/17 03:00 Room Air 10/25/17 02:00 81 10/25/17 00:00 81 10/25/17 00:00 97.9 81 18 115/87 (96) 97 10/24/17 23:00 74 10/24/17 23:00 97.9 74 18 156/92 (113) 98 10/24/17 22:35 10/24/17 22:30 74 10/24/17 22:30 98.3 74 15 180/81 (114) 99 10/24/17 22:17 98.1 71 18 140/65 (90) 96 Room Air 10/24/17 20:50 86 18 197/87 (123) 100 Room Air 10/24/17 19:12 105 18 227/112 (150) 98 Room Air 10/24/17 18:45 101 18 100 Room Air 10/24/17 18:40 98.0 101 18 221/102 (141) 98 (Kendall Maldonado) Physical Examination GENERAL: Awake & alert, readily interacts, affect normal, no apparent distress. HEENT: Normocephalic, abrasion to right forehead/frontal scalp. PERRLA 3 mm brisk, EOMI, right periorbital ecchymosis. MMM & pink, tongue midline to protrusion. MUSCULOSKELETAL: BOLIVAR w/o difficulty, ecchymosis to BUE, right distal shoulder TTP, no evident deformity or clubbing. NEUROLOGICAL: AAOx3 except for year. Speech clear & appropriate. Follows commands w/o difficulty. CN VIII deficit ([place]) o/w CN II-XII appear grossly intact. Sensation intact to light touch to all extremities. Motor strength 5/5 to all major flexion & extension muscle groups. (Kendall Maldonado) Lab, Micro, Other Results Recent Impressions Head CT 10/25/17 0900 Signed Impressions: Service Date/Time: Wednesday, October 25, 2017 06:33 - CONCLUSION: 1. Persistent focal area of increased density at the anterior right frontal lobe which may represent an area of hemorrhage or possible pre-existing meningioma of the right anterior frontal lobe. 2. New small areas of parenchymal hemorrhage with surrounding edema at the left temporal lobe. 3. Minimal left temporal subdural hemorrhage area there also appears to be subdural hemorrhage at the posterior left side of falx and at the left tentorium. This information was relayed to Graciela, the patient's nurse by telephone. Bo Cardoza MD Hand X-Ray 10/25/17 0000 Signed Impressions: Service Date/Time: Wednesday, October 25, 2017 07:21 - CONCLUSION: Erosive osteoarthritic changes. No acute abnormality. Prasad Poon Jr., MD Brain MRI 10/25/17 0000 Signed Impressions: Service Date/Time: Wednesday, October 25, 2017 13:58 - CONCLUSION: Small parenchymal hemorrhage left parietal-occipital region probably bland hemorrhage. Subtle enhancement with contrast should be followed with MRI in 6 weeks to ensure this is evolving as gland hemorrhage should.. Juan Castillo MD FACR Head CT 10/24/17 0000 Signed Impressions: Service Date/Time: Tuesday, October 24, 2017 18:48 - CONCLUSION: 1. Focal hemorrhage in the superior-medial right frontal lobe measuring approximately 1.7 cm without significant underlying mass effect. 2. Prominent soft tissue swelling/hemorrhage in the right lateral frontotemporal scalp. Bo Cardoza MD ADDENDUM: A focal 1.7 cm hyperdense mass in the superior-medial right frontal lobe could represent an acute hemorrhage or a pre-existing meningioma. The distinction cannot be made on this noncontrast CT. There are small punctate areas of hemorrhage seen in the right frontal lobe inferior to this which raises the possibility this may be an acute hemorrhage. No underlying mass effect is seen at this time. Bo Cardoza MD Cervical Spine CT 10/24/17 0000 Signed Impressions: Service Date/Time: Tuesday, October 24, 2017 18:51 - CONCLUSION: 1. No acute bony abnormality is seen. 2. Chronic degenerative change as described above. Bo Cardoza MD Laboratory Tests Test 10/24/17 19:00 10/24/17 21:41 10/24/17 22:30 10/25/17 00:25 White Blood Count 9.9 TH/MM3 Red Blood Count 4.73 MIL/MM3 Hemoglobin 13.6 GM/DL Hematocrit 41.5 % Mean Corpuscular Volume 87.6 FL Mean Corpuscular Hemoglobin 28.8 PG Mean Corpuscular Hemoglobin Concent 32.8 % Red Cell Distribution Width 14.7 % Platelet Count 273 TH/MM3 Mean Platelet Volume 8.6 FL Neutrophils (%) (Auto) 68.3 % Lymphocytes (%) (Auto) 19.6 % Monocytes (%) (Auto) 9.6 % Eosinophils (%) (Auto) 2.2 % Basophils (%) (Auto) 0.3 % Neutrophils # (Auto) 6.7 TH/MM3 Lymphocytes # (Auto) 1.9 TH/MM3 Monocytes # (Auto) 0.9 TH/MM3 Eosinophils # (Auto) 0.2 TH/MM3 Basophils # (Auto) 0.0 TH/MM3 CBC Comment DIFF FINAL Differential Comment Blood Urea Nitrogen 22 MG/DL Creatinine 0.80 MG/DL Random Glucose 93 MG/DL Calcium Level 9.2 MG/DL Sodium Level 137 MEQ/L Potassium Level 4.3 MEQ/L Chloride Level 107 MEQ/L Carbon Dioxide Level 21.6 MEQ/L Anion Gap 8 MEQ/L Estimat Glomerular Filtration Rate 68 ML/MIN Urine Color LIGHT-YELLOW Urine Turbidity CLEAR Urine pH 5.0 Urine Specific [place] 1.012 Urine Protein TRACE mg/dL Urine Glucose (UA) NEG mg/dL Urine Ketones 10 mg/dL Urine Occult Blood TRACE Urine Nitrite NEG Urine Bilirubin NEG Urine Urobilinogen LESS THAN 2.0 MG/DL Urine Leukocyte Esterase TRACE Urine RBC 4 /hpf Urine WBC 4 /hpf Urine Squamous Epithelial Cells 1 /hpf Urine Mucus FEW /lpf Microscopic Urinalysis Comment CULT NOT INDICATED Nasal Screen MRSA (PCR) MRSA NOT DETECTED Prothrombin Time 10.4 SEC Prothromb Time International Ratio 1.0 RATIO Activated Partial Thromboplast Time 25.5 SEC Test 10/25/17 04:50 White Blood Count 10.8 TH/MM3 Red Blood Count 4.01 MIL/MM3 Hemoglobin 11.6 GM/DL Hematocrit 34.4 % Mean Corpuscular Volume 85.8 FL Mean Corpuscular Hemoglobin 29.0 PG Mean Corpuscular Hemoglobin Concent 33.8 % Red Cell Distribution Width 14.2 % Platelet Count 164 TH/MM3 Mean Platelet Volume 8.8 FL Neutrophils (%) (Auto) 80.1 % Lymphocytes (%) (Auto) 9.4 % Monocytes (%) (Auto) 9.8 % Eosinophils (%) (Auto) 0.3 % Basophils (%) (Auto) 0.4 % Neutrophils # (Auto) 8.6 TH/MM3 Lymphocytes # (Auto) 1.0 TH/MM3 Monocytes # (Auto) 1.1 TH/MM3 Eosinophils # (Auto) 0.0 TH/MM3 Basophils # (Auto) 0.0 TH/MM3 CBC Comment DIFF FINAL Differential Comment Hematology Comments Blood Urea Nitrogen 18 MG/DL Creatinine 0.62 MG/DL Random Glucose 98 MG/DL Calcium Level 8.4 MG/DL Sodium Level 139 MEQ/L Potassium Level 4.3 MEQ/L Chloride Level 110 MEQ/L Carbon Dioxide Level 19.6 MEQ/L Anion Gap 9 MEQ/L Estimat Glomerular Filtration Rate 91 ML/MIN (Kendall Maldonado) Medical Decision Making Impression and Plan Impression: 1.) Small traumatic subarachnoid hemorrhage with a questionable small meningioma. The patient continues to do well and is neurologically intact. CT brain demonstrates persistent anterior right frontal lobe haemorrhage with new areas of left temporal lobe parenchymal haemorrhage, minimal left temporal SDH as well as a left side falx & tentorium SDH. MRI brain demonstrates small left parietoccipital parenchymal haemorrhage. Plan: Primary management per Learning Disabled Teacher/Hospitalist. Neuro checks. Stat CT for any decline in neuro status. MRI brain w/o & w/contrast to evaluate for meningioma. Clear liquids and advance as tolerated. Mechanical DVT prophylaxis. Hold pharmacologic DVT prophylaxis. Recommend that the patient remain in ISC at least another 24 hrs due to new areas of haemorrahge. (Kendall Maldonado) Total Minutes: 30 (Kendall Maldonado) Attending Statement The exam, history, and the medical decision-making described in the above note were completed with the assistance of the mid-level provider. I reviewed and agree with the findings presented. I attest that I had a [id number] encounter with the patient on the same day, and personally performed and documented my assessment and findings in the medical record. On my examination of 10/26/2017 in the evening the patient is resting quietly. She arouses easily to voice. Her speech is a little hesitant but clear. She denies headache or nausea. Extraocular movements intact Facial motor symmetric Extremity sensory to light touch and motor function intact Vital signs stable Stable mild traumatic brain injury, mild areas of contusion and subarachnoid hemorrhage without significant mass effect. Slight area of enhancement on MRI. Doubtful underlying neoplasm but plan follow -up MRI brain with and without contrast as an outpatient in approximately 6 weeks. She is otherwise stable for discharge from neurosurgical standpoint. (Angel Hernández MD) Kendall Maldonado Oct 26, 2017 16:09 Angel Hernández MD Oct 27, 2017 00:13
--- NOTE | 2017-10-26 16:31 | RADRPT ---
EXAM DATE/TIME: 10/26/2017 16:16 [facility] COMPARISON: No previous studies available for comparison. INDICATIONS : Right upper rib pain post fall. MEDICAL HISTORY : None. SURGICAL HISTORY : Total knee replacement, right. Total knee replacement, left. ENCOUNTER: Initial ACUITY: 2 days PAIN SCORE: 7/10 LOCATION: Right ribs. FINDINGS: Multiple views of the right ribs were performed. There is no evidence of displaced fracture. No nelson tructive lesions or areas of periosteal thickening are seen. Expiratory view of the chest is negativ e for pneumothorax. The mediastinal structures are midline. CONCLUSION: Unremarkable examination of the right ribs and chest. Brady Delacruz MD on October 26, 2017 at 16:29 Board Certified Radiologist. This report was verified electronically.
--- NOTE | 2017-10-26 19:16 | HHI.PR ---
Subjective Remarks Pt says she is feeling generally weak after the fall followed by 4 days NPO. She is requesting food. She also says she is in pain, particularly on the right anterior ribs. She has many friends and family members at bedside. Objective Vital Signs Date Time Temp Pulse Resp B/P (MAP) Pulse Ox O2 Delivery O2 Flow Rate FiO2 10/26/17 16:00 97.3 80 18 98/47 (64) 98 10/26/17 12:00 98.1 93 18 180/77 (111) 98 10/26/17 09:42 97 Room Air 10/26/17 08:00 97.8 92 19 138/80 (99) 97 10/26/17 05:27 98.1 77 19 163/69 (100) 97 10/25/17 22:30 97 Room Air 10/25/17 20:00 98.8 89 26 158/70 (99) 97 I/O 10/25/17 10/25/17 10/25/17 10/26/17 10/26/17 10/26/17 07:00 15:00 23:00 07:00 15:00 23:00 Intake Total 0 ml 381 ml 1059 ml 480 ml Output Total 350 ml 625 ml 225 ml Balance -350 ml -244 ml 834 ml 480 ml Intake Oral 0 ml 360 ml 480 ml IV Total 21 ml 1059 ml Output Urine Total 350 ml 625 ml 225 ml Emesis 0 ml # Voids 3 2 2 2 # Bowel Movements 1 1 1 1 Result Diagram: 10/25/17 0450 10/25/17 0450 Imaging Last Impressions Ribs X-Ray 10/26/17 0000 Signed Impressions: Service Date/Time: Thursday, October 26, 2017 16:16 - CONCLUSION: Unremarkable examination of the right ribs and chest. Brady Delacruz MD Head CT 10/25/17 0900 Signed Impressions: Service Date/Time: Wednesday, October 25, 2017 06:33 - CONCLUSION: 1. Persistent focal area of increased density at the anterior right frontal lobe which may represent an area of hemorrhage or possible pre-existing meningioma of the right anterior frontal lobe. 2. New small areas of parenchymal hemorrhage with surrounding edema at the left temporal lobe. 3. Minimal left temporal subdural hemorrhage area there also appears to be subdural hemorrhage at the posterior left side of falx and at the left tentorium. This information was relayed to Graciela, the patient's nurse by telephone. Bo Cardoza MD Hand X-Ray 10/25/17 0000 Signed Impressions: Service Date/Time: Wednesday, October 25, 2017 07:21 - CONCLUSION: Erosive osteoarthritic changes. No acute abnormality. Prasad Poon Jr., MD Brain MRI 10/25/17 0000 Signed Impressions: Service Date/Time: Wednesday, October 25, 2017 13:58 - CONCLUSION: Small parenchymal hemorrhage left parietal-occipital region probably bland hemorrhage. Subtle enhancement with contrast should be followed with MRI in 6 weeks to ensure this is evolving as gland hemorrhage should.. Juan Castillo MD FACR Cervical Spine CT 10/24/17 0000 Signed Impressions: Service Date/Time: Tuesday, October 24, 2017 18:51 - CONCLUSION: 1. No acute bony abnormality is seen. 2. Chronic degenerative change as described above. Bo Cardoza MD Objective Remarks GENERAL: Well-nourished, well-developed patient. SKIN: Warm and dry, bandage on right forehead and right lateral hand. EYES: No scleral icterus. No injection or drainage. NECK: Supple, trachea midline. No JVD or lymphadenopathy. CARDIOVASCULAR: Regular rate and rhythm without murmurs, gallops, or rubs. RESPIRATORY: Breath sounds equal bilaterally. No accessory muscle use. GASTROINTESTINAL: Abdomen soft, non-tender, nondistended. MUSCULOSKELETAL: Tenderness to palpation over right 4th rib area, mid nipple line BACK: Nontender without obvious deformity. No CVA tenderness. EXTREMITIES: no edema Assessment and Plan Problem List: (1) ICH (intracerebral hemorrhage) ICD Codes: I61.9 - Nontraumatic intracerebral hemorrhage, unspecified Status: Acute (2) Syncope and collapse ICD Codes: R55 - Syncope and collapse Status: Acute (3) Laceration of scalp ICD Codes: S01.01XA - Laceration without foreign body of scalp, initial encounter Status: Acute Assessment and Plan Intracerebral hemorrhage due to syncope with fall - Left parietotemporal hematoma on MRI, no evidence of stroke - Radiology recommends repeat MRI in 6 weeks to rule out venous angioma - Neurosurgery following - Thus far no events on telemery to account for the episode of syncope Laceration of forehead - repaired in the ER - dressing changes Rib Pain - Rib x-ray shows no fractures DVT Prophylaxis - SCD hose due to presence of ICH Problem Qualifiers (1) ICH (intracerebral hemorrhage): Qualified Codes: S06.341A - Traumatic hemorrhage of right cerebrum with loss of consciousness of 30 minutes or less, initial encounter (2) Laceration of scalp: Qualified Codes: S01.01XA - Laceration without foreign body of scalp, initial encounter Emiliano Kaufman MD Oct 26, 2017 19:16
[2017-10-26] MEDS ORDERED: MONTELUKAST SODIUM 10 MG TAB PO SCH (21:00)
[2017-10-27] VITALS: BP 105/52; PULSE 79; RESP 18; TEMP 98.5; O2SAT 96
[2017-10-27] MEDS: CHLORHEXIDINE GLUCONATE 2 % 1 PACK (2 CLOTHS) TOP SCH (01:36)
[2017-10-27 04:00] VITALS: BP 112/51; PULSE 75; RESP 18; TEMP 98.2; O2SAT 95
[2017-10-27 07:37] VITALS: BP 117/54; PULSE 78; RESP 18; TEMP 98.9; O2SAT 97
[2017-10-27] MEDS: FAMOTIDINE 20 MG TAB PO SCH (08:44)
[2017-10-27] MEDS: DOCUSATE SODIUM 50 MG/SENNA 8.6 MG TAB PO SCH (08:44)
[2017-10-27] MEDS: SODIUM CHLORIDE 0.9% FLUSH 10 ML FLUSH IV FLUSH SCH (08:44)
[2017-10-27] MEDS: ENALAPRIL MALEATE 2.5 MG TAB PO SCH (08:44)
[2017-10-27] MEDS ORDERED: CITALOPRAM HYDROBROMIDE 20 MG TAB PO SCH (09:00)
--- NOTE | 2017-10-27 10:21 | HHI.FF ---
Face to Face Verification Diagnosis: (1) Laceration of scalp (2) Fall (3) ICH (intracerebral hemorrhage) Physical Therapy Order: Evaluate and Treat Home Health Nursing Order: Nursing assessment with vital signs I have seen patient Lucille Ashley on 10/27/17. My clinical findings support the need for the requested home health care services because: Limited ability to care for self I certify that my clinical findings support that this patient is homebound because: Unsafe to leave home unassisted Finn Isaacs MD Oct 27, 2017 10:21
--- NOTE | 2017-10-27 10:28 | HHI.PR ---
Subjective Remarks She says she is feeling well. Denies any chest pain or shortness of breath. Denies any nausea or vomiting. Feels like going home. Says that she was walking the dog and that the dog pulled her down. She promises not to walk the dog anymore. Objective Vital Signs Date Time Temp Pulse Resp B/P (MAP) Pulse Ox O2 Delivery O2 Flow Rate FiO2 10/27/17 07:37 98.9 78 18 117/54 (75) 97 10/27/17 04:00 98.2 75 18 112/51 (71) 95 10/27/17 00:00 98.5 79 18 105/52 (69) 96 10/26/17 23:51 97 Room Air 10/26/17 23:49 87 10/26/17 20:24 76 10/26/17 20:20 98.6 82 19 111/54 (73) 97 10/26/17 16:00 97.3 80 18 98/47 (64) 98 10/26/17 12:00 98.1 93 18 180/77 (111) 98 I/O 10/26/17 10/26/17 10/26/17 10/27/17 10/27/17 10/27/17 07:00 15:00 23:00 07:00 15:00 23:00 Intake Total 480 ml Balance 480 ml Intake Oral 480 ml # Voids 2 3 # Bowel Movements 2 Result Diagram: 10/25/17 0450 10/25/17 0450 Imaging Last Impressions Ribs X-Ray 10/26/17 0000 Signed Impressions: Service Date/Time: Thursday, October 26, 2017 16:16 - CONCLUSION: Unremarkable examination of the right ribs and chest. Brady Delacruz MD Head CT 10/25/17 0900 Signed Impressions: Service Date/Time: Wednesday, October 25, 2017 06:33 - CONCLUSION: 1. Persistent focal area of increased density at the anterior right frontal lobe which may represent an area of hemorrhage or possible pre-existing meningioma of the right anterior frontal lobe. 2. New small areas of parenchymal hemorrhage with surrounding edema at the left temporal lobe. 3. Minimal left temporal subdural hemorrhage area there also appears to be subdural hemorrhage at the posterior left side of falx and at the left tentorium. This information was relayed to Graciela, the patient's nurse by telephone. Bo Cardoza MD Hand X-Ray 10/25/17 0000 Signed Impressions: Service Date/Time: Wednesday, October 25, 2017 07:21 - CONCLUSION: Erosive osteoarthritic changes. No acute abnormality. Prasad Poon Jr., MD Brain MRI 10/25/17 0000 Signed Impressions: Service Date/Time: Wednesday, October 25, 2017 13:58 - CONCLUSION: Small parenchymal hemorrhage left parietal-occipital region probably bland hemorrhage. Subtle enhancement with contrast should be followed with MRI in 6 weeks to ensure this is evolving as gland hemorrhage should.. Juan Castillo MD FACR Cervical Spine CT 10/24/17 0000 Signed Impressions: Service Date/Time: Tuesday, October 24, 2017 18:51 - CONCLUSION: 1. No acute bony abnormality is seen. 2. Chronic degenerative change as described above. Bo Cardoza MD Objective Remarks GENERAL: Patient sitting up in chair. Appears comfortable. SKIN: Warm and dry. HEAD: Normocephalic. Right forehead laceration CDI EYES: No scleral icterus. No injection or drainage. NECK: Supple, trachea midline. No JVD. CARDIOVASCULAR: Regular rate and rhythm without murmurs, gallops, or rubs. RESPIRATORY: Breath sounds equal bilaterally. No accessory muscle use. GASTROINTESTINAL: Abdomen soft, non-tender, nondistended. MUSCULOSKELETAL: No cyanosis, or edema. BACK: Nontender without obvious deformity. No CVA tenderness. A/P Assessment and Plan //Intracerebral hemorrhage due to syncope with fall - Left parietotemporal hematoma on MRI, no evidence of stroke - Radiology recommends repeat MRI in 6 weeks to rule out venous angioma - Neurosurgery following - Thus far no events on telemery to account for the episode of syncope = Patient describes mechanical fall secondary to dog walking. No further workup necessary. Patient promises not to walk the dog anymore. Suture removal around November 08 with primary care. //Laceration of forehead - repaired in the ER - dressing changes = Follow-up with primary care. //Rib Pain - Rib x-ray shows no fractures //DVT Prophylaxis - SCD hose due to presence of ICH Discharge Planning Discharged today home with home health. Finn Isaacs MD Oct 27, 2017 10:28
--- NOTE | 2017-10-27 10:29 | HHI.DS ---
Discharge Summary Admission Date Oct 24, 2017 at 20:59 Discharge Date: Oct 27, 2017 Admitting Diagnosis Fall; Syncope; ICH; Forehead Laceration (1) Forehead laceration ICD Code: S01.81XA - Laceration without foreign body of other part of head, initial encounter Diagnosis: Secondary Status: Acute (2) Fall ICD Code: W19.XXXA - Unspecified fall, initial encounter Status: Acute (3) HTN (hypertension) ICD Code: I10 - Essential (primary) hypertension Diagnosis: Secondary Status: Acute (4) Abrasion hand ICD Code: S60.519A - Abrasion of unspecified hand, initial encounter Diagnosis: Secondary Status: Acute (5) Concussion ICD Code: S06.0X9A - Concussion with loss of consciousness of unspecified duration, initial encounter Diagnosis: Principal Status: Acute (6) Frontal lobe contusion ICD Code: S06.339A - Contusion and laceration of cerebrum, unspecified, with loss of consciousness of unspecified duration, initial encounter Diagnosis: Principal Procedures forehead laceration sutured in the ER. No Invasive procedures. Brief History - From Admission Patient is alert and able to provide history regarding her fall. She is not able to relate any information about her home medications or past medical history aside from her prior surgeries. 87-year-old female who was brought to [facility] emergency department after a fall with loss of consciousness. She states that she recalls walking her dog and that the dog pulled on the leash and caused her to fall. She states this is happened one time before about a year ago. She had loss of consciousness. No reported seizure activity. There is a laceration on her right forehead which has been repaired in the ED. CT brain demonstrates R frontal lobe hemorrhage. Neurosurgery has been consulted and Dr. Singer suspects underlying meningioma. She currently denies headache, nausea, neck pain, paresthesias. She is bothered by the cervical collar in place. She denies chest pain, shortness of breath, palpitations. She was hypertensive on arrival with blood pressure 227/112. She has not received any antihypertensives. Blood pressure is now 180/81. She states she does not have a history of hypertension but she is on several medications and doesn't know their names or what they're for. She states she takes a baby ASA but denies anticoagulants. CBC/BMP: 10/25/17 0450 10/25/17 0450 Significant Findings Laboratory Tests Test 10/24/17 19:00 10/24/17 21:41 10/24/17 22:30 10/25/17 00:25 Monocytes (%) (Auto) 9.6 % (0.0-8.0) Blood Urea Nitrogen 22 MG/DL (7-18) Estimat Glomerular Filtration Rate 68 ML/MIN (>89) Urine Ketones 10 mg/dL (NEG) Urine Occult Blood TRACE (NEG) Urine Leukocyte Esterase TRACE (NEG) Urine RBC 4 /hpf (0-3) Urine Mucus FEW /lpf (OCC) Test 10/25/17 04:50 Hematocrit 34.4 % (35.0-46.0) Neutrophils (%) (Auto) 80.1 % (16.0-70.0) Monocytes (%) (Auto) 9.8 % (0.0-8.0) Neutrophils # (Auto) 8.6 TH/MM3 (1.8-7.7) Monocytes # (Auto) 1.1 TH/MM3 (0-0.9) Calcium Level 8.4 MG/DL (8.5-10.1) Chloride Level 110 MEQ/L (98-107) Carbon Dioxide Level 19.6 MEQ/L (21.0-32.0) Imaging Last Impressions Ribs X-Ray 10/26/17 0000 Signed Impressions: Service Date/Time: Thursday, October 26, 2017 16:16 - CONCLUSION: Unremarkable examination of the right ribs and chest. Brady Delacruz MD Head CT 10/25/17 0900 Signed Impressions: Service Date/Time: Wednesday, October 25, 2017 06:33 - CONCLUSION: 1. Persistent focal area of increased density at the anterior right frontal lobe which may represent an area of hemorrhage or possible pre-existing meningioma of the right anterior frontal lobe. 2. New small areas of parenchymal hemorrhage with surrounding edema at the left temporal lobe. 3. Minimal left temporal subdural hemorrhage area there also appears to be subdural hemorrhage at the posterior left side of falx and at the left tentorium. This information was relayed to Graciela, the patient's nurse by telephone. Bo Cardoza MD Hand X-Ray 10/25/17 0000 Signed Impressions: Service Date/Time: Wednesday, October 25, 2017 07:21 - CONCLUSION: Erosive osteoarthritic changes. No acute abnormality. Prasad Poon Jr., MD Brain MRI 10/25/17 0000 Signed Impressions: Service Date/Time: Wednesday, October 25, 2017 13:58 - CONCLUSION: Small parenchymal hemorrhage left parietal-occipital region probably bland hemorrhage. Subtle enhancement with contrast should be followed with MRI in 6 weeks to ensure this is evolving as gland hemorrhage should.. Juan Castillo MD FACR Cervical Spine CT 10/24/17 0000 Signed Impressions: Service Date/Time: Tuesday, October 24, 2017 18:51 - CONCLUSION: 1. No acute bony abnormality is seen. 2. Chronic degenerative change as described above. Bo Cardoza MD Hospital Course Patient's head laceration was repaired in the ER. Head CT showed intracerebral hemorrhage on admission, with repeat CT on 10/25 as above. Neurosurgery was consult, monitored and cleared patient for discharge. Patient is to hold any anticoagulants or NSAIDs until cleared by neurosurgery. She is to follow with primary care, with removal of sutures around November 08. For problem-based summary from most recent progress note, please see below. //Intracerebral hemorrhage due to syncope with fall - Left parietotemporal hematoma on MRI, no evidence of stroke - Radiology recommends repeat MRI in 6 weeks to rule out venous angioma - Neurosurgery following - Thus far no events on telemery to account for the episode of syncope = Patient describes mechanical fall secondary to dog walking. No further workup necessary. Patient promises not to walk the dog anymore. Suture removal around November 08 with primary care. //Laceration of forehead - repaired in the ER - dressing changes = Follow-up with primary care. //Rib Pain - Rib x-ray shows no fractures //DVT Prophylaxis - SCD hose due to presence of ICH Pt Condition on Discharge: Good Discharge Disposition: Disch w/ Home Health Serv Discharge Time: > 30 minutes Discharge Instructions DIET: Follow Instructions for: Heart Healthy Diet Activities you can perform: Regular-No Restrictions Follow up Referrals: Neurosurgery - 6 Weeks with Angel Hernández MD PCP Follow-up - 1 Week New Orders: MRI Brain W & W/O Contrast - 4 Weeks Continued Medications: Citalopram (Citalopram) 20 Mg Tab 20 MG PO DAILY for Control Depression, #30 TAB 0 Refills Lutein (Lutein) 20 Mg Cap 20 MG PO DAILY for Nutritional Supplement, CAP 0 Refills Montelukast (Singulair) 10 Mg Tab 10 MG HS NEB, #30 TAB 0 Refills Discontinued Medications: Pivsfst-Wxlnwcdsvuaby-Plkuobgi (Excedrin Extra Strength) 250 Mg-250 Mg-65 Mg Tab Doxycycline (Doxycycline) 40 Mg Cap Unknown Dose PO DAILY for Infection, CAP 0 Refills Estradiol (Estradiol) 0.5 Mg Tab 0.5 MG PO DAILY for Estrogen Supplements, #30 TAB 0 Refills [diclofenac] () 75 MG PO BID Finn Isaacs MD Oct 27, 2017 10:29
--- NOTE | 2017-10-27 11:24 | HHI.NSPN ---
History Chief Complaint: Doing good. Interval History 10/24: This is an 87-year-old female patient who was walking her dog when she apparently sustained a fall with loss of consciousness. She was brought to [facility] where she underwent evaluation with CT scan which was abnormal and neurosurgery consult was placed. Presently the patient has no significant complaints. She denies any type of injuries about her body. 10/25: The patient is awake and alert when seen this morning and she had no complaints. Nursing reports that she has been up to the bathroom to void and her gait was steady. She is to go for an MRI brain today to evaluate for a possible meningioma per CT. 10/26: When seen this afternoon the patient is in a stretcher getting ready to go down for rib x-rays. She stated that this morning she had a headache, dizziness and nausea. When they got her back to bed it took two people to help her. The headache and dizziness are better and the nausea has resolved. She says she is having pain up under her right breast and it was felt she may have a rib fracture. She also stated that Physical Therapy thought she would be able to go home with Home Health for further therapy. 10/27: This morning the patient is doing well. She is sitting up on the edge of the bed and has no complaints. She denies any headache, dizziness or nausea. She says that her right side feels better. She is to be discharged home today. Exam Results 10/25/17 10/25/17 10/26/17 10/26/17 10/27/17 10/27/17 06:00 18:00 06:00 18:00 06:00 18:00 Intake Total 100 ml 1440 ml 480 ml Output Total 1200 ml Balance 100 ml 240 ml 480 ml Intake Oral 360 ml 480 ml IV Total 100 ml 1080 ml Output Urine Total 1200 ml Emesis 0 ml # Voids 5 2 2 1 # Bowel Movements 3 1 1 Vital Signs Date Time Temp Pulse Resp B/P (MAP) Pulse Ox O2 Delivery O2 Flow Rate FiO2 10/27/17 07:37 98.9 78 18 117/54 (75) 97 10/27/17 04:00 98.2 75 18 112/51 (71) 95 10/27/17 00:00 98.5 79 18 105/52 (69) 96 10/26/17 23:51 97 Room Air 10/26/17 23:49 87 10/26/17 20:24 76 10/26/17 20:20 98.6 82 19 111/54 (73) 97 10/26/17 16:00 97.3 80 18 98/47 (64) 98 10/26/17 12:00 98.1 93 18 180/77 (111) 98 10/26/17 09:42 97 Room Air 10/26/17 08:00 97.8 92 19 138/80 (99) 97 10/26/17 05:27 98.1 77 19 163/69 (100) 97 10/25/17 22:30 97 Room Air 10/25/17 20:00 98.8 89 26 158/70 (99) 97 10/25/17 19:00 98 Room Air 10/25/17 16:00 98.4 81 24 132/62 (85) 97 10/25/17 16:00 92 10/25/17 14:00 86 10/25/17 12:00 98.0 79 22 118/57 (77) 96 10/25/17 10:00 97 10/25/17 08:00 98.3 90 19 119/52 (74) 99 10/25/17 08:00 83 10/25/17 07:00 99 Room Air 10/25/17 07:00 83 10/25/17 06:00 90 20 142/65 (90) 98 10/25/17 06:00 90 10/25/17 05:00 109 10/25/17 05:00 109 20 160/69 (99) 96 10/25/17 04:00 88 10/25/17 04:00 99.5 88 20 129/58 (81) 97 10/25/17 03:00 Room Air 10/25/17 02:00 81 10/25/17 00:00 81 10/25/17 00:00 97.9 81 18 115/87 (96) 97 10/24/17 23:00 74 10/24/17 23:00 97.9 74 18 156/92 (113) 98 10/24/17 22:35 10/24/17 22:30 74 10/24/17 22:30 98.3 74 15 180/81 (114) 99 10/24/17 22:17 98.1 71 18 140/65 (90) 96 Room Air 10/24/17 20:50 86 18 197/87 (123) 100 Room Air 10/24/17 19:12 105 18 227/112 (150) 98 Room Air 10/24/17 18:45 101 18 100 Room Air 10/24/17 18:40 98.0 101 18 221/102 (141) 98 Physical Examination GENERAL: Awake & alert, readily interacts, affect normal, no apparent distress. HEENT: Normocephalic, abrasion to right forehead/frontal scalp. PERRLA 3 mm brisk, EOMI, right periorbital ecchymosis resolving. MMM & pink, tongue midline to protrusion. MUSCULOSKELETAL: BOLIVAR w/o difficulty, ecchymosis to BUE, no evident deformity or clubbing. NEUROLOGICAL: AAOx3 except for year. Speech clear & appropriate. Follows commands w/o difficulty. 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 Sensation intact to light touch to all extremities. Motor strength 5/5 to all major flexion & extension muscle groups. Lab, Micro, Other Results Recent Impressions Ribs X-Ray 10/26/17 0000 Signed Impressions: Service Date/Time: Thursday, October 26, 2017 16:16 - CONCLUSION: Unremarkable examination of the right ribs and chest. Brady Delacruz MD Head CT 10/25/17 0900 Signed Impressions: Service Date/Time: Wednesday, October 25, 2017 06:33 - CONCLUSION: 1. Persistent focal area of increased density at the anterior right frontal lobe which may represent an area of hemorrhage or possible pre-existing meningioma of the right anterior frontal lobe. 2. New small areas of parenchymal hemorrhage with surrounding edema at the left temporal lobe. 3. Minimal left temporal subdural hemorrhage area there also appears to be subdural hemorrhage at the posterior left side of falx and at the left tentorium. This information was relayed to Graciela, the patient's nurse by telephone. Bo Cardoza MD Hand X-Ray 10/25/17 0000 Signed Impressions: Service Date/Time: Wednesday, October 25, 2017 07:21 - CONCLUSION: Erosive osteoarthritic changes. No acute abnormality. Prasad Poon Jr., MD Brain MRI 10/25/17 0000 Signed Impressions: Service Date/Time: Wednesday, October 25, 2017 13:58 - CONCLUSION: Small parenchymal hemorrhage left parietal-occipital region probably bland hemorrhage. Subtle enhancement with contrast should be followed with MRI in 6 weeks to ensure this is evolving as gland hemorrhage should.. Juan Castillo MD FACR Laboratory Tests Test 10/24/17 19:00 10/24/17 21:41 10/24/17 22:30 10/25/17 00:25 White Blood Count 9.9 TH/MM3 Red Blood Count 4.73 MIL/MM3 Hemoglobin 13.6 GM/DL Hematocrit 41.5 % Mean Corpuscular Volume 87.6 FL Mean Corpuscular Hemoglobin 28.8 PG Mean Corpuscular Hemoglobin Concent 32.8 % Red Cell Distribution Width 14.7 % Platelet Count 273 TH/MM3 Mean Platelet Volume 8.6 FL Neutrophils (%) (Auto) 68.3 % Lymphocytes (%) (Auto) 19.6 % Monocytes (%) (Auto) 9.6 % Eosinophils (%) (Auto) 2.2 % Basophils (%) (Auto) 0.3 % Neutrophils # (Auto) 6.7 TH/MM3 Lymphocytes # (Auto) 1.9 TH/MM3 Monocytes # (Auto) 0.9 TH/MM3 Eosinophils # (Auto) 0.2 TH/MM3 Basophils # (Auto) 0.0 TH/MM3 CBC Comment DIFF FINAL Differential Comment Blood Urea Nitrogen 22 MG/DL Creatinine 0.80 MG/DL Random Glucose 93 MG/DL Calcium Level 9.2 MG/DL Sodium Level 137 MEQ/L Potassium Level 4.3 MEQ/L Chloride Level 107 MEQ/L Carbon Dioxide Level 21.6 MEQ/L Anion Gap 8 MEQ/L Estimat Glomerular Filtration Rate 68 ML/MIN Urine Color LIGHT-YELLOW Urine Turbidity CLEAR Urine pH 5.0 Urine Specific Dierks 1.012 Urine Protein TRACE mg/dL Urine Glucose (UA) NEG mg/dL Urine Ketones 10 mg/dL Urine Occult Blood TRACE Urine Nitrite NEG Urine Bilirubin NEG Urine Urobilinogen LESS THAN 2.0 MG/DL Urine Leukocyte Esterase TRACE Urine RBC 4 /hpf Urine WBC 4 /hpf Urine Squamous Epithelial Cells 1 /hpf Urine Mucus FEW /lpf Microscopic Urinalysis Comment CULT NOT INDICATED Nasal Screen MRSA (PCR) MRSA NOT DETECTED Prothrombin Time 10.4 SEC Prothromb Time International Ratio 1.0 RATIO Activated Partial Thromboplast Time 25.5 SEC Test 10/25/17 04:50 White Blood Count 10.8 TH/MM3 Red Blood Count 4.01 MIL/MM3 Hemoglobin 11.6 GM/DL Hematocrit 34.4 % Mean Corpuscular Volume 85.8 FL Mean Corpuscular Hemoglobin 29.0 PG Mean Corpuscular Hemoglobin Concent 33.8 % Red Cell Distribution Width 14.2 % Platelet Count 164 TH/MM3 Mean Platelet Volume 8.8 FL Neutrophils (%) (Auto) 80.1 % Lymphocytes (%) (Auto) 9.4 % Monocytes (%) (Auto) 9.8 % Eosinophils (%) (Auto) 0.3 % Basophils (%) (Auto) 0.4 % Neutrophils # (Auto) 8.6 TH/MM3 Lymphocytes # (Auto) 1.0 TH/MM3 Monocytes # (Auto) 1.1 TH/MM3 Eosinophils # (Auto) 0.0 TH/MM3 Basophils # (Auto) 0.0 TH/MM3 CBC Comment DIFF FINAL Differential Comment Hematology Comments Blood Urea Nitrogen 18 MG/DL Creatinine 0.62 MG/DL Random Glucose 98 MG/DL Calcium Level 8.4 MG/DL Sodium Level 139 MEQ/L Potassium Level 4.3 MEQ/L Chloride Level 110 MEQ/L Carbon Dioxide Level 19.6 MEQ/L Anion Gap 9 MEQ/L Estimat Glomerular Filtration Rate 91 ML/MIN Medical Decision Making Impression and Plan Impression: 1.) Small traumatic subarachnoid hemorrhage with a questionable small meningioma. The patient is doing well and remains neurologically intact. CT brain demonstrates persistent anterior right frontal lobe haemorrhage with new areas of left temporal lobe parenchymal haemorrhage, minimal left temporal SDH as well as a left side falx & tentorium SDH. MRI brain demonstrates small left parietoccipital parenchymal haemorrhage. Plan: Plan of care discussed with patient & family. Plan of care discussed with Nursing. Primary management per Hospitalist. Neuro checks. Stat CT for any decline in neuro status. Mechanical DVT prophylaxis. Hold pharmacologic DVT prophylaxis. Patient is okay for discharge home from NSGY's perspective w/outpatient follow up in 6 weeks, prior to that appointment she will need to have an MRI w/o & w/ contrast completed. Kendall Maldonado PAYMENT ANALYST Oct 27, 2017 11:24
[2017-10-27] MEDS ORDERED: TRAM50 PO (11:52)
== END 2017-10-27 12:17 | disposition home health service (06) | DRG 84 ==
LOC: NEPC 18:39 → NEDA 20:59 → N03A 22:25 → N05A 10-25 22:00
PROVIDERS: ADMIT Internal Medicine; ATTEND Internal Medicine
PROC: 0HQ1XZZ Repair Face Skin, External Approach (ICD-10-PCS; principal; 2017-10-24)
DX: S06.339A Contusion and laceration of cerebrum, unspecified, with loss of consciousness of unspecified duration, initial encounter (principal); H11.31 Conjunctival hemorrhage, right eye; W18.39XA Other fall on same level, initial encounter; Y93.K1 Activity, walking an animal; S60.511A Abrasion of right hand, initial encounter; I10 Essential (primary) hypertension; Z79.82 Long term (current) use of aspirin
CPT/HCPCS: 12011; 70450; 70553; 71101; 72125; 73130; 80048; 81001; 85025; 85610; 85730; 86850; 86900; 86901; 87641; 90471; 90714; 93005; 96374; A9579; J0690; J7030